=== PATIENT | female | born 1990 | race Caucasian/White ===

== ENCOUNTER 2022-12-04 12:01 | Emergency (ER) | payer OTHER, SELFPAY ==
[2022-12-04 12:25] VITALS: BP 130/95; PULSE 81; RESP 18; TEMP 36.8; O2SAT 99; BMI 32.2
--- NOTE | 2022-12-04 12:34 | EXP.UTC ---
Discharge Plan Disposition Patient Disposition: Home, Self-Care Condition: Good Referrals Follow up/Referrals: Provider,Referral, MD [Primary Care Provider] - See instructions Activity Restrictions/Add. Instructions Additional Instructions/Restrictions: Your work-up did not show any evidence of emergent causes of chest pain please follow-up with your primary care provider. You may benefit from an ultrasound of your area of breast tenderness. Please return to the emergency department if you develop any new or worsening symptoms or become concerned for your health. Clinical Impressions Clinical Impression: Chest pain Discharge ED Provider: Torres Petersen [facility] General Chief complaint: Chest Pain Stated complaint: chest discomfort, possible anxiety Time Seen by Provider: 12/04/22 12:34 History of Present Illness Provider Complaint: Patient states that for the last 4 days she has been having pressure like feeling in her chest like something is sitting on her chest and felt like she was breathing through a straw and getting winded easily when she is up moving around States that also has sore area on the right side of her chest in the side of her right breast and cannot wear a bra because it makes it uncomfortable States that she does have a hx of anxiety so she thought that may be causing her chest discomfort so she waited before coming in but when it didnt get better she came in Related Data Allergies Allergy/AdvReac Type Severity Reaction Status Date / Time No Known Allergies Allergy Verified 12/04/22 12:48 [facility] Disclaimer: The information contained in this section may have been updated after the patient was seen, as this information can be updated by other users. Social History Smoking Status: Never smoker alcohol intake: never current occupational status: other Travel in the last 8 weeks: None ROS Obtained: Yes All systems reviewed & no additional complaints except as documented and Yes Systems reviewed as appropriate & no additional complaints except as documented Constitutional Constitutional: Reports system reviewed and no additional complaints, except as documented, Reports as per HPI, Denies body ache, Denies chills, Denies fever(s) and Denies headache(s) ENT Ears, Nose, Mouth, and Throat: Reports system reviewed and no additional complaints, except as documented, Reports as per HPI and Denies headache(s) Cardiovascular Cardiovascular: Reports system reviewed and no additional complaints, except as documented, Reports as per HPI, Reports dyspnea and Reports other (reports chest tightness and discomfort x 4 days no improvement) Respiratory Respiratory: Reports system reviewed and no additional complaints, except as documented, Reports as per HPI, Reports shortness of breath (winded feels like she is breathing through straw when up moving around) and Reports dyspnea Gastrointestinal Gastrointestingal: Reports system reviewed and no additional complaints, except as documented and as per HPI Neurologic Neurologic: Denies headache(s) Physical Exam General General appearance: alert and in no apparent distress Expanded Chest Exam Female Torso: 1. reports tenderness with palpation no redness no swelling noted Respiratory Respiratory exam: Present normal lung sounds bilaterally; Absent respiratory distress Cardiovascular Cardiovascular exam: Present regular rate, normal rhythm and normal heart sounds Neurological Exam Neurological exam: Present alert, oriented X3 and normal gait Medical Decision Making Nadeem Inquiry Pt receiving controlled substance: No Nadeem was queried for this patient: No Lab Data 12/04/22 12:55 12/04/22 12:55 Medical Decision Narrative: Patient states that she has a hx of anxiety and states for last 4 days she has been having pressure and tightness in her chest thought it may be her anxiety so she waited to come in but it hasnt improved and burgos
--- NOTE | 2022-12-04 12:48 | PC.NURSE ---
PATIENT SENT TO ER PER Jonny HEMPHILL APRN FOR FURTHER EVALUATION. PATIENT AMBULATED TO ER WITH [facility] STAFF ASSIST AT THIS TIME
[2022-12-04 12:52] VITALS: BP 144/89; PULSE 77; RESP 18; TEMP 36.7; O2SAT 98; BMI 32.1
--- NOTE | 2022-12-04 12:56 | ECG_ITS ---
APPROVED REPORT Exam: Resting ECG HR:67 bpm ECG Measurements Heart Rate 67 AXES GA 164 P 56 QRSd 95 QRS 34 QT 381 T 60 QTc 397 Conclusion SINUS RHYTHM NORMAL ECG UNCONFIRMED REPORT Electronically signed by : Harish Ly MD 12/06/2022 21:32:01
[2022-12-04 12:58] LABS: Microscopic, Urine URINE MICROSCOPIC (MICROSCOPIC)
--- NOTE | 2022-12-04 13:01 | XR_ITS ---
FINAL REPORT CLINICAL HISTORY: cp/soa FINDINGS: The heart size is normal. The mediastinum is within normal limits. There is no acute cardiopulmonary process. There is no pleural effusion. There is no pneumothorax. The bony thorax is intact. IMPRESSION: No acute cardiopulmonary process. Reviewed, Interpreted and Dictated by Naveen Ruiz III, MD Transcribed by Santino Emmanuel Authenticated and [facility]
[2022-12-04 13:02] LABS: Appearance,Urine CLEAR (Clear); Bilirubin,Urine Negative (Negative); Blood, Urine Negative (Negative); Color,Urine YELLOW (Yellow); Glucose,Urine (UA) Negative (Negative); Ketones,Urine Negative (Negative); Leukocyte Esterase,Urine Negative (Negative); Nitrate,Urine Negative (Negative); Protein,Urine Negative (Negative); Urobilinogen,Urine 0.2 EU/dl (0.2)
[2022-12-04 13:03] LABS: Urine Pregnancy, HCG Qual. Negative (Negative)
[2022-12-04 13:15] LABS: Squamous Epithelial Cell,Urine Occasional #/hpf (0-5)
[2022-12-04 13:18] LABS: Basophils # 0.1 K/mm3 (0-0.2); Eosinophils # 0.2 K/mm3 (0.0-0.4); Eosinophils % 2.1 % (0.1-12.0); Hematocrit 38.8 % (37.0-47.0); Hemoglobin 13.2 g/dL (12.2-16.2); Lymphocytes # 1.8 K/mm3 (0.7-4.5); Lymphocytes % 24.8 % (10-50); Mean Corpuscular HGB Conc 33.9 g/dL (31.8-35.4); Mean Corpuscular Hemoglobin 30.4 pg (27.0-31.2); Mean Corpuscular Volume 89.7 fl (81-99); Mean Platelet Volume 9.7 fl (7.4-10.4); Monocytes # 0.3 K/mm3 (0.1-1.0); Monocytes % 4.8 % (1.7-9.3); Neutrophils # 4.8 K/mm3 (1.8-7.8); Neutrophils % 67.2 % (37.0-80.0); Platelet Count 259 K/mm3 (142-424); Red Blood Count 4.33 M/mm3 (4.20-5.40); Red Cell Distribution Width 14.6 % (11.5-17.5); White Blood Count 7.1 K/mm3 (4.8-10.8)
[2022-12-04 13:22] LABS: Chloride 106 mmol/L (98-107); Sodium 141 mmol/L (136-145)
[2022-12-04 13:23] LABS: Potassium 3.9 mmoL/L (3.5-5.1)
[2022-12-04 13:25] LABS: Alanine Aminotransferase 25 U/L (12-78); Anion Gap 11.9 mEq/L (5-15); Aspartate Amino Transferase 38 U/L (14-36); Blood Urea Nitrogen 9 mg/dl (7-17); Carbon Dioxide 27 mmol/L (22.0-30.0); Creatinine Clearance Estimated 206 mL/min (50-200); Estimated Glomerular Filt Rate 117 ml/min (>60); GFR (African American) 141 ML/MIN (>60)
[2022-12-04 13:26] LABS: Albumin/Globulin Ratio 1.6 (1.1-1.8); Alkaline Phosphatase 70 U/L (38-126); Bilirubin,Total 0.3 mg/dl (0.2-1.3); Calcium 9.1 mg/dl (8.4-10.2); Globulin 3.2 g/dL (1.3-3.2); Glucose 101 mg/dl (74-100); Total Protein,Serum 8.2 g/dl (6.3-8.2)
[2022-12-04 13:27] LABS: D-Dimer 0.78 ug/mL (0.0-0.5)
--- NOTE | 2022-12-04 13:31 | CT_ITS ---
FINAL REPORT CLINICAL HISTORY: cp, sob, positive dimer FINDINGS: Thin section axial CT images of the chest were obtained with contrast. 3D reformatted images were also obtained. This study was performed with techniques to keep radiation doses as low as reasonably achievable (ALARA). Individualized dose reduction techniques using automated exposure control or adjustment of mA and/or kV according to the patient's size were employed. There is no evidence of pulmonary embolism. There is no evidence of thoracic aortic aneurysm or dissection. There is no evidence of mediastinal or hilar mass or adenopathy. There is no evidence of pulmonary mass or nodule. No localized inflammatory process is seen within the lungs. Limited images of the upper abdomen reveal several small stones in the upper pole of the right kidney. IMPRESSION: No evidence of pulmonary embolism. Right renal stones. Reviewed, Interpreted and Dictated by Naveen Ruiz III, MD Transcribed by Fátima Fowler Authenticated and [facility]
[2022-12-04 13:39] LABS: Troponin I < 0.01 ng/ml (0.00-0.034)
[2022-12-04 14:01] LABS: Thyroid Stimulating Hormone 2.16 uIU/mL (0.465-4.68)
[2022-12-04 14:45] VITALS: BP 119/83; PULSE 71; O2SAT 96
--- NOTE | 2022-12-04 14:47 | PC.NURSE ---
Rounded on patient; pt ambulatory to restroom without complications. No other needs at this time
[2022-12-04 15:00] VITALS: BP 126/85; PULSE 66; O2SAT 98
[2022-12-04 15:35] VITALS: BP 126/86; PULSE 68; RESP 18; TEMP 36.7; O2SAT 99
--- NOTE | 2022-12-13 05:49 | HMH.EDGENADL ---
Discharge Plan Disposition Patient Disposition: Home, Self-Care Condition: Good Prescriptions Prescriptions: No Action hydroxychloroquine 200 mg tablet PO sertraline 100 mg tablet 100 mg PO DAILY Patient Comments: TAKE 1 TABLET BY MOUTH ONCE DAILY trazodone 50 mg tablet 50 mg PO HS lorazepam 1 mg tablet 1 mg PO DAILY PRN (Reason: panic attack(s)) Qty: 7 0RF Referrals Follow up/Referrals: Provider,Referral, MD [Primary Care Provider] - See instructions Activity Restrictions/Add. Instructions Additional Instructions/Restrictions: Your work-up did not show any evidence of emergent causes of chest pain please follow-up with your primary care provider. You may benefit from an ultrasound of your area of breast tenderness. Please return to the emergency department if you develop any new or worsening symptoms or become concerned for your health. Clinical Impressions Clinical Impression: Chest pain Discharge ED Provider: Torres Petersen General Adult HPI General Chief complaint: Chest Pain Stated complaint: chest discomfort, possible anxiety Time Seen by Provider: 12/04/22 12:34 Mode of Arrival: Ambulatory Source of Information: Patient Limitations: No Limitations Description of Symptoms (Recalled from ER Triage Doc. by RN): PATIENT C/O PAIN UNDER RIGHT BREAST AREA, CHEST PRESSURE, AND EASILY RUNNING OUT OF BREATH SINCE YESTERDAY History of Present Illness HPI narrative: 32-year-old female, history of anxiety, presents with 4 days of chest pain and discomfort.She reports it is central in nature, also reports an area of tenderness in her right medial breast. Reports of difficulty breathing. Denies any fever chills or recent illness. Related Data Home Medications Medication Instructions Recorded Confirmed hydroxychloroquine 200 mg tablet mg PO 12/12/22 12/12/22 sertraline 100 mg tablet 100 mg PO DAILY 12/12/22 12/12/22 trazodone 50 mg tablet 50 mg PO HS 12/12/22 12/12/22 Previous Rx's Medication Instructions Recorded lorazepam 1 mg tablet 1 mg PO DAILY PRN panic attack(s) 12/12/22 #7 tabs Allergies Allergy/AdvReac Type Severity Reaction Status Date / Time No Known Allergies Allergy Verified 12/12/22 10:[address] [facility] Disclaimer: The information contained in this section may have been updated after the patient was seen, as this information can be updated by other users. Medical History (Updated 12/12/22 @ 11:04 by Ishan David DO) Anxiety Depression Rheumatoid arteritis Family History (Updated 12/12/22 @ 10:32 by Merly Chacon CMA) Other Asthma Coronary artery disease Diabetes Hyperlipidemia Hypertension Social History (Updated 12/12/22 @ 10:32 by Merly Chacon CMA) Smoking Status: Never smoker alcohol intake: never substance use type: denies use current occupational status: employed Travel in the last 8 weeks: None ROS Obtained: Yes All systems reviewed & no additional complaints except as documented Physical Exam General General appearance: alert and in no apparent distress Head Head exam: atraumatic and normocephalic Eye Eye exam: Present normal appearance, PERRL and EOMI ENT ENT exam: Present normal oropharynx and normal external ear exam Neck Neck exam: Present normal inspection and full ROM Chest Chest inspection: Present normal inspection, symmetric chest wall rise and tenderness (Right medial breast tenderness without overlying skin changes) Respiratory Respiratory exam: Present normal lung sounds bilaterally; Absent respiratory distress Cardiovascular Cardiovascular exam: Present regular rate and normal rhythm Abdominal Exam Abdominal exam: Present soft; Absent distention, tenderness or guarding Extremities Exam Extremities exam: Present normal inspection; Absent edema or joint swelling Back Exam Back exam: Present normal inspection; Absent tenderness Neurological Exam Neurological exam: Present alert an
== END 2022-12-04 15:35 | disposition home or self-care (01) ==
LOC: UTC 12:14 → ER 12:48
PROVIDERS: Emergency Provider Emergency Medicine
DX: R07.9 Chest pain, unspecified (principal)
CPT/HCPCS: 71045; 71275; 80053; 81001; 81025; 84443; 84484; 85025; 85378; 93005; 99285; Q9967

== ENCOUNTER 2022-12-25 16:35 | Emergency (ER) | payer OTHER, SELFPAY ==
[2022-12-25 16:50] VITALS: BP 135/83; PULSE 72; RESP 18; TEMP 36.9; O2SAT 97; BMI 30.8
[2022-12-25 16:57] LABS: UTC Strep Screen (Rapid) Negative (Negative)
--- NOTE | 2022-12-25 17:01 | EXP.UTC ---
Discharge Plan Disposition Patient Disposition: Home, Self-Care Condition: Good Prescriptions Prescriptions: New tiqobbjuhffghtg-lvjsfmjip-DL [Bromfed DM] 2-30-10 mg/5 mL Syrup 5 ml PO Q6H PRN (Reason: Cough) Qty: 240 0RF ondansetron 4 mg Tablet,Disintegrating 4 mg PO Q8H PRN (Reason: Nausea) Qty: 12 0RF No Action hydroxychloroquine 200 mg tablet 200 mg PO BID sertraline 100 mg tablet 100 mg PO DAILY Patient Comments: TAKE 1 TABLET BY MOUTH ONCE DAILY trazodone 50 mg tablet 50 mg PO HS lorazepam 1 mg tablet 1 mg PO DAILY PRN (Reason: panic attack(s)) Qty: 7 0RF Referrals Follow up/Referrals: Ishan David DO [Primary Care Provider] - See instructions Activity Restrictions/Add. Instructions Additional Instructions/Restrictions: Drink plenty of fluids. Take tylenol or ibuprofen for pain or fever. Take the medications as directed. Follow up with your regular doctor. GO TO THE ER FOR ANY WORSENING SYMPTOMS Clinical Impressions Clinical Impression: Acute viral syndrome, Viral pharyngitis Stand Alone Forms Stand Alone Forms: Work/School Release Instructions Patient Instructions: DI for Viral Syndrome Discharge ED Provider: Rogelio Rios [facility] General Stated complaint: sore throat, runny nose, congestion Mode of Arrival: Ambulatory Source of Information: Patient Limitations: No Limitations Time Seen by Provider: 12/25/22 17:00 Description of Symptoms (Recalled from Triage Doc. by RN): sore throat, runny nose, and congestion HEENT Symptoms (Recalled from RN notes): Yes Resp Symptoms (Recalled from RN notes): No Skin Symptoms (Recalled from RN notes): No MS Symptoms (Recalled from RN notes): No Functional Status (Recalled from RN notes): n/a History of Present Illness Provider Complaint: She c/o sore throat, runny nose, and congestion for the past 2 days. Related Data Home Medications Medication Instructions Recorded Confirmed hydroxychloroquine 200 mg tablet 200 mg PO BID 12/12/22 12/25/22 sertraline 100 mg tablet 100 mg PO DAILY 12/12/22 12/25/22 trazodone 50 mg tablet 50 mg PO HS 12/12/22 12/25/22 Previous Rx's Medication Instructions Recorded lorazepam 1 mg tablet 1 mg PO DAILY PRN panic attack(s) 12/12/22 #7 tabs ylkfaoozrkomjvu-jrrxbtjvkkiufco-ZQ 5 ml PO Q6H PRN Cough #240 mL 12/25/22 2 mg-30 mg-10 mg/5 mL oral syrup (Bromfed DM) ondansetron 4 mg disintegrating 4 mg PO Q8H PRN Nausea #12 tabs 12/25/22 tablet Allergies Allergy/AdvReac Type Severity Reaction Status Date / Time No Known Allergies Allergy Verified 12/25/22 16:53 Worker's Comp Is this a Worker's Comp case?: No [facility] Disclaimer: The information contained in this section may have been updated after the patient was seen, as this information can be updated by other users. Medical History (Updated 12/25/22 @ 17:16 by Rogelio Rios APRN) Anxiety Depression Rheumatoid arteritis Family History Other Asthma Coronary artery disease Diabetes Hyperlipidemia Hypertension Social History Smoking Status: Never smoker alcohol intake: never substance use type: denies use current occupational status: employed Travel in the last 8 weeks: None ROS Obtained: Yes All systems reviewed & no additional complaints except as documented Constitutional Constitutional: Reports chills and Reports fever(s) Eyes Eyes: Denies eye discharge ENT Ears, Nose, Mouth, and Throat: Reports as per HPI Cardiovascular Cardiovascular: Denies chest pain Respiratory Respiratory: Denies chest congestion and Reports cough Gastrointestinal Gastrointestingal: Reports nausea; Denies abdominal pain, constipation, cramping, diarrhea or vomiting Musculoskeletal Musculoskeletal: Denies arthralgias Integumentary/Breasts Skin/Breast: Denies rash Neurologic Neur
[2022-12-25 17:53] VITALS: BP 135/83; PULSE 72; RESP 18; TEMP 36.9; O2SAT 97
== END 2022-12-25 17:53 | disposition home or self-care (01) ==
PROVIDERS: Emergency Provider Nurse Practitioner Family; PCP Internal Medicine
DX: J02.8 Acute pharyngitis due to other specified organisms (principal); R09.81 Nasal congestion; B34.9 Viral infection, unspecified; M06.9 Rheumatoid arthritis, unspecified
CPT/HCPCS: 87880; 99204; 99212; G0463

== ENCOUNTER 2023-02-17 10:18 | Emergency (ER) | payer OTHER, SELFPAY ==
[2023-02-17 10:55] VITALS: BP 144/91; PULSE 81; RESP 19; TEMP 37.1; O2SAT 98; BMI 28.8
--- NOTE | 2023-02-17 11:09 | EXP.UTC ---
Discharge Plan Disposition Patient Disposition: Home, Self-Care Condition: Good Prescriptions Prescriptions: New amoxicillin 875 mg tablet 875 mg PO Q12H Qty: 20 0RF No Action hydroxychloroquine 200 mg tablet 200 mg PO BID sertraline 100 mg tablet 100 mg PO DAILY Patient Comments: TAKE 1 TABLET BY MOUTH ONCE DAILY Referrals Follow up/Referrals: Ishan David DO [Primary Care Provider] - See instructions Activity Restrictions/Add. Instructions Additional Instructions/Restrictions: *Monitor Temp, Over the counter Motrin or Tylenol as directed/as needed Tylenol every 4 hours and Motrin every 6 hours (as long as your family doctor has told you that you can take it) for fever or pain. and straight to ER if unable to lower temp less than 101.0 after medication given *Warm salt water gargles may help to soothe the throat *Throat Lozenges? *Warm fluids like tea with honey may help to soothe the throat? *Sleep elevated *Humidifier/Vaporizer *If you did not take Penicillin shot or was unable to, start taking antibiotic immediately and make sure that you take it for the FULL length of time although you should start to feel better in 24-48 hours *change toothbrush and toothpaste 24-48 hours after starting to take antibiotics so you do not reinfect yourself Monitor Temp. Tylenol and/or Ibuprofen as needed. ER if fever is no less than 101 despite alternating Tylenol and Ibuprofen * Encourage fluids, water, Gatorade, powerade, pedialyte if /toddler/or child *Cold fluids, popsicles and ice cream may feel good on his throat Follow up IMMEDIATELY for new or worsening symptoms or no Noticeable improvement over the next 48-72 hours. 911 for difficulty breathing or swallowing Clinical Impressions Clinical Impression: Strep throat Stand Alone Forms Stand Alone Forms: Work/School Release Instructions Patient Instructions: DI for Strep Throat Discharge ED Provider: Karen Weaver [facility] General Stated complaint: sore throat, fever Mode of Arrival: Ambulatory Source of Information: Patient Limitations: No Limitations Time Seen by Provider: 02/17/23 11:09 Description of Symptoms (Recalled from Triage Doc. by RN): PATIENT C/O FEVER, SORE THROAT AND BODY ACHES X 2 DAYS HEENT Symptoms (Recalled from RN notes): Yes Resp Symptoms (Recalled from RN notes): No Skin Symptoms (Recalled from RN notes): No MS Symptoms (Recalled from RN notes): No Functional Status (Recalled from RN notes): WNL History of Present Illness Provider Complaint: Patient states that for the last couple of days she has been having sore throat, body aches, headache and over all not feeling well so today when she was still having symptoms she came in to get checked Related Data Home Medications Medication Instructions Recorded Confirmed hydroxychloroquine 200 mg tablet 200 mg PO BID 12/12/22 02/17/23 sertraline 100 mg tablet 100 mg PO DAILY 12/12/22 02/17/23 Previous Rx's Medication Instructions Recorded amoxicillin 875 mg tablet 875 mg PO Q12H #20 tabs 02/17/23 Allergies Allergy/AdvReac Type Severity Reaction Status Date / Time No Known Allergies Allergy Verified 12/25/22 16:53 Worker's Comp Is this a Worker's Comp case?: No [facility] Disclaimer: The information contained in this section may have been updated after the patient was seen, as this information can be updated by other users. Medical History (Updated 02/17/23 @ 11:11 by Karen Weaver APRN) Anxiety Depression Rheumatoid arteritis Surgical History (Updated 02/17/23 @ 11:05 by Bella Zarco RN) History of section Family History Other Asthma Coronary artery disease Diabetes Hyperlipidemia Hypertension Social History Smoking Status: Never smoker alcohol intake: never substance use type: denies use current occupational status: employed Travel in the last 8 weeks: None ROS Obtained: Yes All systems reviewed & no additional complaints except as documented and Yes Systems reviewed as appropriate & no additional complaints except as documented Constitutional Constitutional: Reports system reviewed and no additional complaints, except as documented, Reports as per HPI, Reports body ache and Reports headache(s) ENT Ears, Nose, Mouth, and Throat: Reports system reviewed and no additional complaints, except as documented, Reports as per HPI, Reports headache(s) and Reports sore throat Cardiovascular Cardiovascular: Reports system reviewed and no additional complaints, except as documented and Reports as per HPI Respiratory Respiratory: Reports system reviewed and no additional complaints, except as documented and Reports as per HPI Neurologic Neurologic: Reports headache(s) Physical Exam General General appearance: alert and in no apparent distress ENT ENT exam: Present mucous membranes moist Expanded ENT Exam Throat exam: Present tonsillar erythema and tonsillar exudate Respiratory Respiratory exam: Present normal lung sounds bilaterally; Absent respiratory distress or wheezes Cardiovascular Cardiovascular exam: Present regular rate, normal rhythm and normal heart sounds Neurological Exam Neurological exam: Present alert, oriented X3 and normal gait Medical Decision Making Nadeem Inquiry Pt receiving controlled substance: No Nadeem was queried for this patient: No Vital Signs: 02/17/23 10:55 Temperature 98.7 F Temperature Source Oral Pulse Rate [Left Brachial] 81 Respiratory Rate 19 Blood Pressure [Left Arm] 144/91 H Blood Pressure Mean [Left Arm] 108 Blood Pressure Source [Left Arm] Automatic Cuff Blood Pressure Position [Left Arm] Sitting 02 Sat by Pulse Oximetry 98 Oxygen Delivery Method Room Air Lab Data Lab results reviewed: Yes I reviewed the patient's lab results.
[2023-02-17 11:19] LABS: UTC Strep Screen (Rapid) Positive (Negative)
[2023-02-17 11:19] LABS: UTC Influenza A Antigen Negative (Negative); UTC Influenza B Antigen Negative (Negative)
[2023-02-17 11:20] VITALS: BP 144/91; PULSE 81; RESP 19; TEMP 37.1; O2SAT 98
== END 2023-02-17 11:22 | disposition home or self-care (01) ==
PROVIDERS: Emergency Provider Nurse Practitioner; PCP Internal Medicine
DX: J02.0 Streptococcal pharyngitis (principal); R07.0 Pain in throat; R50.9 Fever, unspecified; R51.9 Headache, unspecified; M79.18 Myalgia, other site
CPT/HCPCS: 87804; 87880; 99212; 99214; G0463

== ENCOUNTER 2023-05-21 08:56 | Emergency (ER) | payer OTHER, SELFPAY ==
[2023-05-21 09:00] VITALS: BP 135/81; PULSE 78; RESP 18; TEMP 36.8; O2SAT 100; BMI 29.8
--- NOTE | 2023-05-21 09:11 | ED_ITS ---
Discharge Plan Disposition Patient Disposition: Home, Self-Care Condition: Good Prescriptions Prescriptions: New xkmeutck-peudqiiwy-TU 3.5-10,000-1 mg/mL-unit/mL-% drops,suspension 4 drp otic (ear) TID 7 Days Qty: 10 0RF Rx Instructions: right ear as directed amoxicillin 875 mg tablet 875 mg PO Q12H Qty: 20 0RF No Action hydroxychloroquine 200 mg tablet 200 mg PO BID trazodone 50 mg tablet 50 mg PO HS Qty: 90 3RF sertraline 100 mg tablet 100 mg PO DAILY Qty: 90 0RF Referrals Follow up/Referrals: Ishan David DO [Primary Care Provider] - See instructions Activity Restrictions/Add. Instructions Additional Instructions/Restrictions: Use drops as directed Take oral antibiotics as directed Follow up with your Family Doctor if no improvement or any worsening of symptoms Straight to ER if any life threatening symptoms Clinical Impressions Clinical Impression: Otitis media, Otitis externa Instructions Patient Instructions: Middle Ear Infection, DI for Otitis Externa Discharge ED Provider: Karen Weaver [facility] [place] HPI General Stated complaint: Rt ear pain Mode of Arrival: Ambulatory Source of Information: Patient Limitations: No Limitations Time Seen by Provider: 05/21/23 09:11 Description of Symptoms (Recalled from Triage Doc. by RN): Pt's symptoms are right ear pain, and pain on right side of face. She woke up with it this morning. HEENT Symptoms (Recalled from RN notes): Yes Resp Symptoms (Recalled from RN notes): No Skin Symptoms (Recalled from RN notes): No MS Symptoms (Recalled from RN notes): No Functional Status (Recalled from RN notes): n/a History of Present Illness Provider Complaint: Patient states that she is having pain in her right ear States that she woke up this morning and her right ear was feeling sore and hurt when she would touch it Related Data Home Medications Medication Instructions Recorded Confirmed hydroxychloroquine 200 mg tablet 200 mg PO BID 12/12/22 05/21/23 Previous Rx's Medication Instructions Recorded trazodone 50 mg tablet 50 mg PO HS #90 tabs 04/29/23 sertraline 100 mg tablet 100 mg PO DAILY #90 tabs 05/20/23 amoxicillin 875 mg tablet 875 mg PO Q12H #20 tabs 05/21/23 mihgxkla-xdruvysiq-tlhhxrepj 3.5 4 drp otic (ear) TID 7 days #10 mL 05/21/23 mg-10,000 unit/mL-1 % ear drops,susp Allergies Allergy/AdvReac Type Severity Reaction Status Date / Time No Known Allergies Allergy Verified 05/21/23 09:07 Worker's Comp Is this a Worker's Comp case?: No PFSH [facility] Disclaimer: The information contained in this section may have been updated after the patient was seen, as this information can be updated by other users. Medical History (Updated 05/21/23 @ 09:24 by Karen Weaver APRN) Family history of colon cancer Depression Anxiety Rheumatoid arteritis Surgical History History of section Family History Grandfather Cancer Other Asthma Coronary artery disease Diabetes Hyperlipidemia Hypertension Social History Smoking Status: Never smoker alcohol intake: never substance use type: denies use current occupational status: employed Travel in the last 8 weeks: None ROS Obtained: Yes All systems reviewed & no additional complaints except as documented and Yes Systems reviewed as appropriate & no additional complaints except as documented Constitutional Constitutional: Reports system reviewed and no additional complaints, except as documented and Reports as per HPI ENT Ears, Nose, Mouth, and Throat: Reports system reviewed and no additional complaints, except as documented, Reports as per HPI and Reports otalgia Cardiovascular Cardiovascular: Reports system reviewed and no additional complaints, except as documented and Reports as per HPI Respiratory Respiratory: Reports system reviewed and no additional complaints, except as documented and Reports as per HPI Gastrointestinal Gastrointestingal: Reports system reviewed and no additional complaints, except as documented and as per HPI Physical Exam General General appearance: alert and in no apparent distress Expanded ENT Exam External ear exam: Present pain with movement and external tenderness TM/Canal exam: Right TM: erythema and loss of landmarks Respiratory Respiratory exam: Present normal lung sounds bilaterally; Absent respiratory distress or wheezes Cardiovascular Cardiovascular exam: Present regular rate, normal rhythm and normal heart sounds Neurological Exam Neurological exam: Present alert, oriented X3 and normal gait Medical Decision Making Nadeem Inquiry Pt receiving controlled substance: No Nadeem was queried for this patient: No Vital Signs: 05/21/23 09:00 Temperature 98.3 F Temperature Source Oral Pulse Rate [Right Radial] 78 Respiratory Rate 18 Blood Pressure [Right Arm] 135/81 Blood Pressure Mean [Right Arm] 99 Blood Pressure Source [Right Arm] Automatic Cuff Blood Pressure Position [Right Arm] Sitting 02 Sat by Pulse Oximetry 100 Oxygen Delivery Method Room Air
[2023-05-21 09:33] VITALS: BP 154/72; PULSE 70; RESP 18; TEMP 36.7; O2SAT 97
== END 2023-05-21 09:20 | disposition home or self-care (01) ==
PROVIDERS: Emergency Provider Nurse Practitioner; PCP Internal Medicine
DX: H66.91 Otitis media, unspecified, right ear (principal); H60.91 Unspecified otitis externa, right ear
CPT/HCPCS: 99212; 99214; G0463

== ENCOUNTER 2023-12-17 12:54 | Emergency (ER) | payer OTHER, SELFPAY ==
[2023-12-17 13:05] VITALS: BP 145/90; PULSE 80; RESP 18; TEMP 37.1; O2SAT 98; BMI 30.5
[2023-12-17 13:14] LABS: Apearance,Urine Clear (Clear); Bilirubin,Urine Negative (Negative); Blood, Urine Negative (Negative); Color,Urine Yellow (Yellow); Glucose,Urine (UA) 100 (Negative); Ketones,Urine Negative (Negative); Protein,Urine Negative (Negative); Specific Gravity, Urine 1.015 (1.005-1.030); UTC Leukocyte Esterase,Urine Trace (Negative); UTC Nitrate,Urine Positive (Negative); Urobilinogen,Urine 0.2 EU/dl (0.2)
--- NOTE | 2023-12-17 13:27 | EXP.UTC ---
Discharge Plan Disposition Patient Disposition: Home, Self-Care Condition: Good Prescriptions Prescriptions: New nitrofurantoin monohyd/m-cryst [Macrobid] 100 mg capsule 100 mg PO Q12H 7 Days Qty: 14 0RF Rx Instructions: must administer with a meal/food phenazopyridine [Pyridium] 200 mg tablet 200 mg PO Q8H 2 Days Qty: 6 0RF No Action trazodone 50 mg tablet 50 mg PO HS Qty: 90 3RF Referrals Follow up/Referrals: Ishan David DO [Primary Care Provider] - See instructions Activity Restrictions/Add. Instructions Additional Instructions/Restrictions: *Increase fluids. Water not Soda or Tea *Start antibiotic immediately and be sure to take as ordered for the FULL length of time although you should start to see improvement over the next 48 hours *Pyridium as needed Remember this medication will turn your urine . This is normal but it will stain what ever it gets on *You should not use Pyridium for more than 48 hours. If so , follow up with your primary physician to review urine culture and ensure that antibiotic is adequate for infection *Be SURE to follow up anytime for new or worsening symptoms with your family doctor. AND in 48 hours for urine culture results with your family doctor, if you do not have a doctor then you may call back to the [facility] for urine culture results and further treatment. We do recommend that you choose and establish care with a Primary Care Physician. ?AND follow up with them ?in 10-14 days to repeat UA to ensure infection is resolved and blood no longer present *Be sure to let your PCP know that we sent urine cultures from the [facility] so they can follow up to ensure that you area the on the correct antibiotic Call your doctor office and make appointment for 48 hours (2 days from today) ?to follow up and get the results of your urine culture and further treatment Clinical Impressions Clinical Impression: UTI (urinary tract infection) Instructions Patient Instructions: Nitrofurantoin, Phenazopyridine, DI for Urinary Tract Infection (UTI) Print Language Print Language: Icelandic Discharge ED Provider: Karen Weaver [facility] [place] H[place] General Stated complaint: uti Mode of Arrival: Ambulatory Source of Information: Patient Limitations: No Limitations Time Seen by Provider: 12/17/23 13:28 Description of Symptoms (Recalled from Triage Doc. by RN): PATIENT C/O BURNING WITH URINATION AND FEELS LIKE SHE HAS TO URINATE ALL THE TIME SINCE LAST NIGHT HEENT Symptoms (Recalled from RN notes): No Resp Symptoms (Recalled from RN notes): No Skin Symptoms (Recalled from RN notes): No MS Symptoms (Recalled from RN notes): No Functional Status (Recalled from RN notes): WNL History of Present Illness Provider Complaint: Patient states that she feels like she has a UTI States that she has been having burning with urination and feeling of urgency and frequency so today when she was still having symptoms she came in to get checked Related Data Previous Rx's ?Medication ?Instructions ?Recorded trazodone 50 mg tablet 50 mg PO HS #90 tabs 04/29/23 nitrofurantoin 100 mg PO Q12H 7 days #14 caps 12/17/23 monohydrate/macrocrystals 100 mg capsule (Macrobid) phenazopyridine 200 mg tablet 200 mg PO Q8H pain 2 days #6 tabs 12/17/23 (Pyridium) Allergies Allergy/AdvReac Type Severity Reaction Status Date / Time No Known Allergies Allergy Verified 05/21/23 09:07 Worker's Comp Is this a Worker's Comp case?: No [facility] Disclaimer: The information contained in this section may have been updated after the patient was seen, as this information can be updated by other users. Medical History (Updated 12/17/23 @ 13:31 by Karen Weaver APRN) Family history of colon cancer Depression Anxiety Rheumatoid arteritis Surgical History History of section Family History Grandfather Cancer Other Asthma Coronary artery disease Diabetes Hyperlipidemia Hypertension Social History Smoking Status: Never smoker alcohol intake: never substance use type: denies use current occupational status: employed Travel in the last 8 weeks: None ROS Obtained: Yes All systems reviewed & no additional complaints except as documented and Yes Systems reviewed as appropriate & no additional complaints except as documented Constitutional Constitutional: Reports system reviewed and no additional complaints, except as documented, Reports as per HPI, Denies body ache, Denies chills and Denies fever(s) ENT Ears, Nose, Mouth, and Throat: Reports system reviewed and no additional complaints, except as documented and Reports as per HPI Cardiovascular Cardiovascular: Reports system reviewed and no additional complaints, except as documented and Reports as per HPI Respiratory Respiratory: Reports system reviewed and no additional complaints, except as documented and Reports as per HPI Gastrointestinal Gastrointestingal: Reports system reviewed and no additional complaints, except as documented and as per HPI Genitourinary Female Genitourinary: Reports system reviewed and no additional complaints, except as documented, Reports as per HPI, Reports dysuria, Reports urinary frequency and Reports urinary urgency Physical Exam General General appearance: alert and in no apparent distress ENT ENT exam: Present normal exam, normal oropharynx, mucous membranes moist and TM's normal bilaterally Respiratory Respiratory exam: Present normal lung sounds bilaterally; Absent respiratory distress or wheezes Cardiovascular Cardiovascular exam: Present regular rate, normal rhythm and normal heart sounds Abdominal Exam Abdominal exam: Present soft and normal bowel sounds; Absent distention or tenderness Neurological Exam Neurological exam: Present alert, oriented X3 and normal gait Medical Decision Making Medical Records Screening: Per USPSTF and CDC recommendations, given the prevalence of disease in our region, it is our hospital?s policy to screen for HIV and viral Hepatitis for all patients aged 18 and over and those with ongoing risk factors. Nadeem Inquiry Pt receiving controlled substance: No Nadeem was queried for this patient: No Vital Signs: 12/17/23 13:05 Temperature 98.7 F Temperature Source Oral Pulse Rate [Left Brachial] 80 Respiratory Rate 18 Blood Pressure [Left Arm] 145/90 H Blood Pressure Mean [Left Arm] 108 Blood Pressure Source [Left Arm] Automatic Cuff Blood Pressure Position [Left Arm] Sitting 02 Sat by Pulse Oximetry 98 Lab Data Lab results reviewed: Yes I reviewed the patient's lab results. Lab Results 12/17/23 13:04: Urine Color Yellow, Urine Appearance Clear, Urine pH 6.0, Ur Specific [place] 1.015, Urine Protein Negative, Urine Glucose (UA) 100, Urine Ketones Negative, Urine Blood Negative, Urine Nitrate Positive A, Urine Bilirubin Negative, Urine Urobilinogen 0.2, Ur Leukocyte Esterase Trace Orders (Tests/Meds): ORDERS Category Date Time Status Urine Culture Stat Micro 12/17/23 13:02 Received
[2023-12-17 13:30] VITALS: BP 145/90; PULSE 80; RESP 18; TEMP 37.1; O2SAT 98
--- NOTE | 2023-12-20 20:12 | PC.NURSE ---
REVIEWED PATIENT'S URINE CULTURE WITH Jonny HEMPHILL APRN, WHO SPOKE WITH PHARMACY. PHARMACY STATES MACROBID IS A TREATMENT FOR THE MICROORGANISM. WILL CALL PATIENT IN MORNING TO SEE IF SHE'S FEELING BETTER.
== END 2023-12-17 13:34 | disposition home or self-care (01) ==
PROVIDERS: Emergency Provider Nurse Practitioner; PCP Internal Medicine
DX: N39.0 Urinary tract infection, site not specified (principal)
CPT/HCPCS: 81003; 87086; 87088; 87186; 99213; G0381

== ENCOUNTER 2023-12-27 14:57 | Emergency (ER) | payer OTHER, SELFPAY ==
[2023-12-27 15:35] VITALS: BP 119/82; PULSE 64; RESP 19; TEMP 37.1; O2SAT 98; BMI 30.4
--- NOTE | 2023-12-27 15:57 | EXP.UTC ---
Discharge Plan Disposition Patient Disposition: Home, Self-Care Condition: Good Prescriptions Prescriptions: New amoxicillin 875 mg tablet 875 mg PO Q12H Qty: 20 0RF cpocqipcxzkutts-dzjrihlai-MS [Bromfed DM] 2-30-10 mg/5 mL Syrup 5 ml PO Q6H PRN (Reason: Cough) Qty: 240 0RF Referrals Follow up/Referrals: Ishan David DO [Primary Care Provider] - See instructions Activity Restrictions/Add. Instructions Additional Instructions/Restrictions: Drink plenty of fluids. Take tylenol or ibuprofen for pain or fever. Take the medications as directed. Follow up with your regular doctor. GO TO THE ER FOR ANY WORSENING SYMPTOMS Clinical Impressions Clinical Impression: Pharyngitis Instructions Patient Instructions: Sore Throat, DI for Pharyngitis/Tonsillopharyngitis -- Adult Print Language Print Language: Setswana Discharge ED Provider: Rogelio Rios [facility] [place] HPI General Stated complaint: sore throat, fever Mode of Arrival: Ambulatory Source of Information: Patient Limitations: No Limitations Time Seen by Provider: 12/27/23 15:57 Description of Symptoms (Recalled from Triage Doc. by RN): PATIENT C/O SORE THROAT WITH WHITE SPOTS AND LOW-GRADE FEVER SINCE YESTERDAY HEENT Symptoms (Recalled from RN notes): Yes Resp Symptoms (Recalled from RN notes): No Skin Symptoms (Recalled from RN notes): No MS Symptoms (Recalled from RN notes): No Functional Status (Recalled from RN notes): WNL Related Data Previous Rx's ?Medication ?Instructions ?Recorded amoxicillin 875 mg tablet 875 mg PO Q12H #20 tabs 12/27/23 uvtoxaotavhzuec-uikpmbezjmeztjo-IS 5 ml PO Q6H PRN Cough #240 mL 12/27/23 2 mg-30 mg-10 mg/5 mL oral syrup (Bromfed DM) Allergies Allergy/AdvReac Type Severity Reaction Status Date / Time No Known Allergies Allergy Verified 05/21/23 09:07 Worker's Comp Is this a Worker's Comp case?: No [facility] Disclaimer: The information contained in this section may have been updated after the patient was seen, as this information can be updated by other users. Medical History (Updated 12/27/23 @ 16:15 by Rogelio Rios APRN) Family history of colon cancer Depression Anxiety Rheumatoid arteritis Surgical History History of section Family History Grandfather Cancer Other Asthma Coronary artery disease Diabetes Hyperlipidemia Hypertension Social History Smoking Status: Never smoker alcohol intake: never substance use type: denies use current occupational status: employed Travel in the last 8 weeks: None ROS Obtained: Yes All systems reviewed & no additional complaints except as documented Constitutional Constitutional: Reports chills and Reports fever(s) Eyes Eyes: Denies eye discharge ENT Ears, Nose, Mouth, and Throat: Reports as per HPI Cardiovascular Cardiovascular: Denies chest pain Respiratory Respiratory: Denies chest congestion and Reports cough Gastrointestinal Gastrointestingal: Reports nausea; Denies abdominal pain, constipation, cramping, diarrhea or vomiting Musculoskeletal Musculoskeletal: Denies arthralgias Integumentary/Breasts Skin/Breast: Denies rash Neurologic Neurologic: Denies paresthesias Physical Exam General General appearance: alert and in no apparent distress Head Head exam: atraumatic, normocephalic and normal inspection Eye Eye exam: Present normal appearance, PERRL and EOMI ENT ENT exam: Present mucous membranes moist and normal external ear exam Expanded ENT Exam TM/Canal exam: Bilateral TM: erythema and bulging Nose exam: Absent sinus tenderness Mouth exam: Present normal external inspection; Absent drooling Teeth exam: Present normal inspection Throat exam: Present tonsillar erythema, tonsillomegaly and tonsillar exudate Neck Neck exam: Present normal inspection, full ROM and trachea midline; Absent tenderness, meningismus or lymphadenopathy Chest Chest inspection: Present normal inspection and symmetric chest wall rise; Absent tenderness Respiratory Respiratory exam: Present normal lung sounds bilaterally; Absent respiratory distress, wheezes, stridor or accessory muscle use Cardiovascular Cardiovascular exam: Present regular rate and normal rhythm; Absent systolic murmur or diastolic murmur Abdominal Exam Abdominal exam: Present soft and normal bowel sounds; Absent distention, tenderness, guarding, rebound or rigidity Extremities Exam Extremities exam: Present normal inspection and normal capillary refill; Absent calf tenderness Back Exam Back exam: Present normal inspection and full ROM; Absent tenderness, CVA tenderness (R) or CVA tenderness (L) Neurological Exam Neurological exam: Present alert, oriented X3 and CN II-XII intact Psychiatric Psychiatric exam: Present normal affect and normal mood Skin Skin exam: Present warm, dry, intact and normal color Medical Decision Making Medical Records Medical records reviewed: No I reviewed the patient's medical records. Screening: Per USPSTF and CDC recommendations, given the prevalence of disease in our region, it is our hospital?s policy to screen for HIV and viral Hepatitis for all patients aged 18 and over and those with ongoing risk factors. Nadeem Inquiry Pt receiving controlled substance: No Vital Signs: 12/27/23 15:35 Temperature 98.8 F Temperature Source Oral Pulse Rate [Left Brachial] 64 Respiratory Rate 19 Blood Pressure [Left Arm] 119/82 Blood Pressure Mean [Left Arm] 94 Blood Pressure Source [Left Arm] Automatic Cuff Blood Pressure Position [Left Arm] Sitting 02 Sat by Pulse Oximetry 98 Oxygen Delivery Method Room Air Lab Data Lab results reviewed: Yes I reviewed the patient's lab results.
[2023-12-27 15:59] LABS: UTC Strep Screen (Rapid) Negative (Negative)
[2023-12-27 16:15] VITALS: BP 119/82; PULSE 64; RESP 19; TEMP 37.1; O2SAT 98
== END 2023-12-27 16:17 | disposition home or self-care (01) ==
PROVIDERS: Emergency Provider Nurse Practitioner Family; PCP Internal Medicine
DX: J02.9 Acute pharyngitis, unspecified (principal)
CPT/HCPCS: 87880; 99213; G0381

== ENCOUNTER 2024-01-12 08:35 | Emergency (ER) | payer OTHER, SELFPAY ==
[2024-01-12 09:03] VITALS: BP 121/87; PULSE 68; RESP 18; TEMP 36.8; O2SAT 97; BMI 30.7
[2024-01-12 09:05] LABS: Apearance,Urine Clear (Clear); Color,Urine Orange (Yellow)
[2024-01-12 09:06] LABS: Bilirubin,Urine Negative (Negative); Blood, Urine 3+ (Negative); Glucose,Urine (UA) 250 (Negative); Ketones,Urine TRACE (Negative); Protein,Urine 1+ (Negative); UTC Leukocyte Esterase,Urine 3+ (Negative); UTC Nitrate,Urine Positive (Negative); Urobilinogen,Urine 4 EU/dl (0.2)
--- NOTE | 2024-01-12 09:06 | ED_ITS ---
Discharge Plan Disposition Patient Disposition: Home, Self-Care Condition: Good Prescriptions Prescriptions: New phenazopyridine [Pyridium] 200 mg tablet 200 mg PO Q8H 2 Days Qty: 6 0RF ondansetron 4 mg Tablet,Disintegrating 4 mg PO Q8H PRN (Reason: Nausea) Qty: 12 0RF nitrofurantoin monohyd/m-cryst [Macrobid] 100 mg Capsule 100 mg PO BID Qty: 10 0RF Rx Instructions: must administer with a meal/food Referrals Follow up/Referrals: Ishan David DO [Primary Care Provider] - See instructions Activity Restrictions/Add. Instructions Additional Instructions/Restrictions: Drink plenty of fluids. Take tylenol or ibuprofen for pain or fever. Take the medications as directed. Follow up with your regular doctor. GO TO THE ER FOR ANY WORSENING SYMPTOMS The pyridium will make your urine turn orange, this is an expected side effect. It will stain your clothes if it comes into contact with them. We will culture the urine. That will tell what bacteria is causing your infection and which antibiotics will treat it best.This test takes 3 days to complete. Clinical Impressions Clinical Impression: UTI (urinary tract infection) Qualifiers: Urinary tract infection type: site unspecified Hematuria presence: without hematuria Qualified Code(s): N39.0 - Urinary tract infection, site not specified Stand Alone Forms Stand Alone Forms: Work/School Release Instructions Patient Instructions: Urinary Tract Infection, DI for Urinary Tract Infection (UTI) Print Language Print Language: French Discharge ED Provider: Rogelio Rios [facility] General Stated complaint: Pain and frequent urination Mode of Arrival: Ambulatory Source of Information: Patient Time Seen by Provider: 01/12/24 09:06 Description of Symptoms (Recalled from Triage Doc. by RN): UTI S/S HEENT Symptoms (Recalled from RN notes): No Resp Symptoms (Recalled from RN notes): No Skin Symptoms (Recalled from RN notes): No MS Symptoms (Recalled from RN notes): No Functional Status (Recalled from RN notes): WNL Related Data Previous Rx's ?Medication ?Instructions ?Recorded nitrofurantoin 100 mg PO BID #10 caps 01/12/24 monohydrate/macrocrystals 100 mg capsule (Macrobid) ondansetron 4 mg disintegrating 4 mg PO Q8H PRN Nausea #12 tabs 01/12/24 tablet phenazopyridine 200 mg tablet 200 mg PO Q8H 2 days #6 tabs 01/12/24 (Pyridium) Allergies Allergy/AdvReac Type Severity Reaction Status Date / Time No Known Allergies Allergy Verified 05/21/23 09:07 Worker's Comp Is this a Worker's Comp case?: No [facility] Disclaimer: The information contained in this section may have been updated after the patient was seen, as this information can be updated by other users. Medical History (Updated 01/12/24 @ 09:28 by Rogelio Rios APRN) Family history of colon cancer Depression Anxiety Rheumatoid arteritis Surgical History History of section Family History Grandfather Cancer Other Asthma Coronary artery disease Diabetes Hyperlipidemia Hypertension Social History Smoking Status: Never smoker alcohol intake: never substance use type: denies use current occupational status: employed ROS Obtained: Yes All systems reviewed & no additional complaints except as documented Constitutional Constitutional: Reports system reviewed and no additional complaints, except as documented, Denies chills and Denies fever(s) Eyes Eyes: Denies eye discharge ENT Ears, Nose, Mouth, and Throat: Denies dysphagia, Denies sore throat and Denies throat swelling Cardiovascular Cardiovascular: Denies chest pain and Denies dyspnea Respiratory Respiratory: Denies chest congestion, Denies cough and Denies dyspnea Gastrointestinal Gastrointestingal: Denies abdominal pain, constipation, diarrhea, dysphagia, nausea or vomiting Genitourinary Female Genitourinary: Reports as per HPI, Reports dysuria, Reports urinary frequency, Denies urinary incontinence, Reports urinary hesitancy and Reports urinary urgency Musculoskeletal Musculoskeletal: Denies arthralgias and Reports back pain Integumentary/Breasts Skin/Breast: Denies rash Neurologic Neurologic: Denies paresthesias Allergic/Immunologic Allergic/Immunologic: Denies throat swelling Physical Exam General General appearance: alert and in no apparent distress Head Head exam: atraumatic and normocephalic Eye Eye exam: Present normal appearance, PERRL and EOMI ENT ENT exam: Present normal exam, mucous membranes moist, TM's normal bilaterally and normal external ear exam Neck Neck exam: Present normal inspection, full ROM and trachea midline; Absent tenderness, meningismus or lymphadenopathy Chest Chest inspection: Present normal inspection and symmetric chest wall rise; Absent tenderness Respiratory Respiratory exam: Present normal lung sounds bilaterally; Absent respiratory distress, wheezes or stridor Cardiovascular Cardiovascular exam: Present regular rate, normal rhythm and normal heart sounds Abdominal Exam Abdominal exam: Present soft and normal bowel sounds; Absent distention, tenderness, guarding, rebound, rigidity, incision, psoas sign, obturator sign, heel tap sign, Aldrich's sign, Rovsing's sign or tenderness at McBurney's Point Extremities Exam Extremities exam: Present normal inspection, full ROM and normal capillary refill; Absent tenderness, edema, joint swelling, calf tenderness or cyanosis Back Exam Back exam: Present normal inspection and full ROM; Absent tenderness, CVA tenderness (R) or CVA tenderness (L) Neurological Exam Neurological exam: Present alert, oriented X3 and normal gait Psychiatric Psychiatric exam: Present normal affect and normal mood Skin Skin exam: Present warm, dry, intact and normal color Lymphatic Lymphatic Findings: no adenopathy Medical Decision Making Medical Records Medical records reviewed: No I reviewed the patient's medical records. Screening: Per USPSTF and CDC recommendations, given the prevalence of disease in our region, it is our hospital?s policy to screen for HIV and viral Hepatitis for all patients aged 18 and over and those with ongoing risk factors. Nadeem Inquiry Pt receiving controlled substance: No Vital Signs: 01/12/24 09:03 Temperature 98.2 F Temperature Source Oral Pulse Rate [Left Radial] 68 Respiratory Rate 18 Blood Pressure [Left Arm] 121/87 Blood Pressure Mean [Left Arm] 98 02 Sat by Pulse Oximetry 97 Lab Data Lab results reviewed: Yes I reviewed the patient's lab results. Lab Results 01/12/24 09:04: Urine Color Teller, Urine Appearance Clear, Urine pH 5.0, Ur Specific [place] 1.010, Urine Protein 1+, Urine Glucose (UA) 250, Urine Ketones Trace, Urine Blood 3+, Urine Nitrate Positive A, Urine Bilirubin Negative, Urine Urobilinogen 4, Ur Leukocyte Esterase 3+ A Orders (Tests/Meds): ORDERS Category Date Time Status Urine Culture Stat Micro 01/12/24 09:04 Ordered
[2024-01-12 09:29] VITALS: BP 121/87; PULSE 68; RESP 18; TEMP 36.8
== END 2024-01-12 09:31 | disposition home or self-care (01) ==
PROVIDERS: Emergency Provider Nurse Practitioner Family; PCP Internal Medicine
DX: N39.0 Urinary tract infection, site not specified (principal); R30.9 Painful micturition, unspecified; R35.0 Frequency of micturition; M54.9 Dorsalgia, unspecified
CPT/HCPCS: 81003; 87086; 87088; 87186; 99212; G0381

== ENCOUNTER 2024-01-15 15:50 | Outpatient (CLI) | payer OTHER, SELFPAY ==
[2024-01-17 05:11] LABS: HBsAg Screen Negative (Negative); HCV Ab Non Reactive (Non Reactive); Hep A Ab, IGM Negative (Negative); Hep B Core Ab, IgM Negative (Negative)
== END 2024-01-15 23:59 | disposition home or self-care (01) ==
LOC: LAB.DROPOF 01-16 10:13
PROVIDERS: PCP Internal Medicine; Visit Provider Internal Medicine
DX: Z11.59 Encounter for screening for other viral diseases (principal)
CPT/HCPCS: 80074

== ENCOUNTER 2024-01-17 07:12 | Emergency (ER) | payer OTHER, SELFPAY ==
[2024-01-17] VITALS (11 sets, daily range): BP systolic 111–152; BP diastolic 76–109; PULSE 65–101; RESP 15–23; TEMP 36.6–36.9; O2SAT 96–98; BMI 30.8
--- NOTE | 2024-01-17 07:19 | ECG_ITS ---
APPROVED REPORT Exam: Resting ECG HR:87 bpm ECG Measurements Heart Rate 87 AXES NE 159 P 45 QRSd 94 QRS -2 QT 348 T 49 QTc 393 Conclusion SINUS RHYTHM NORMAL ECG UNCONFIRMED REPORT Electronically signed by : DRAKE DOLAN, 01/19/2024 04:35:09
--- NOTE | 2024-01-17 07:47 | PC.NURSE ---
pt ambulatory to bathroom to provide urine sample.
[2024-01-17] MEDS: METHYLPREDNISOLONE SOD SUCC 125MG VIAL 125 MG IV (07:56)
[2024-01-17] MEDS: diphenhydrAMINE 50MG/ML VIAL 50 MG IV (07:56)
[2024-01-17] MEDS: FAMOTIDINE 20MG/2ML VIAL 40 MG IV (07:56)
[2024-01-17 07:57] LABS: Microscopic, Urine URINE MICROSCOPIC (MICROSCOPIC)
[2024-01-17 08:03] LABS: Appearance,Urine CLEAR (Clear); Bilirubin,Urine Negative (Negative); Blood, Urine Negative (Negative); Color,Urine YELLOW (Yellow); Glucose,Urine (UA) Negative (Negative); Ketones,Urine Negative (Negative); Leukocyte Esterase,Urine Negative (Negative); Nitrate,Urine Negative (Negative); Protein,Urine Negative (Negative); Specific Gravity, Urine 1.025 (1.005-1.030); Urobilinogen,Urine 0.2 EU/dl (0.2)
--- NOTE | 2024-01-17 08:22 | HMH.EDGENADL ---
Discharge Plan Disposition Patient Disposition: Home, Self-Care Condition: Good Prescriptions Prescriptions: New epinephrine [EpiPen] 0.3 mg/0.3 mL auto-injector 0.3 mg IM Q10M PRN (Reason: anaphylaxis) Qty: 2 0RF Rx Instructions: for 2 doses cefpodoxime 200 mg tablet 200 mg PO BID 7 Days Qty: 14 0RF Rx Instructions: must administer with a meal/food No Action trazodone 50 mg tablet 50 mg PO HS PRN amoxicillin-pot clavulanate [Augmentin] 500-125 mg tablet 1 tab PO BID 14 Days Qty: 28 0RF Referrals Follow up/Referrals: Ishan Green DO [Primary Care Provider] - See instructions Activity Restrictions/Add. Instructions Additional Instructions/Restrictions: As discussed please follow-up with your primary care provider. I have prescribed an EpiPen, please use this should you have recurrence of symptoms with trouble breathing. Should your symptoms only return and be itchiness and rash try Benadryl. I have changed your antibiotic for your UTI given recent Augmentin starting last night with a rash this morning. Please do not take Augmentin until seen by your primary care provider and consider allergy testing to evaluate for source of today's reaction and rash Clinical Impressions Clinical Impression: Allergic reaction Print Language Print Language: Citizen Of [place] Discharge ED Provider: Mikey Moreno General Adult HPI General Chief complaint: Arrhythmia/Palpitations Stated complaint: hives, shaking Time Seen by Provider: 01/17/24 07:17 Mode of Arrival: Ambulatory Source of Information: Patient Limitations: No Limitations Description of Symptoms (Recalled from ER Triage Doc. by RN): pt presents to ED with c/o itching and palpitations that began approx 15 mins ago. pt reports taking a new abx last night, amox for uti. dr green swithced pt form nitrofuritonin to amox. History of Present Illness HPI narrative: 33yoF patient presents with a chief complaint of sudden onset hives on both legs and one arm, accompanied by a racing heart . Reports that the hives appeared while at work shortly prior to arrival and have slightly improved since their onset. The patient denies any breathing problems, chest pain, shortness of breath, nausea, vomiting, belly pain, diarrhea, or scratchiness in the throat. There is no known history of hives/allergy. The patient started a new antibiotic, amoxicillin with clavulanate (Augmentin), the night before the visit for a urinary tract infection (UTI). Nhi has tolerated amoxicillin in the past without any issues. The UTI was initially treated with Macrobid 2-3 weeks ago, but symptoms returned a few days ago. The patient reports experiencing burning during urination but denies any back pain or other symptoms. The patient denies using any new detergents or having any new exposures or foods. Nhi confirms taking the Augmentin the night before the visit and feeling fine in the morning before the sudden onset of symptoms. Additionally, the patient works at a daycare but denies any contact with children or substances that could have caused the hives. Please note that above description of symptoms, in this electronic medical record under categorization of recalled from ER triage doctor by RN are reflective of an initial nursing assessment, however, is not reflective of my full history and physical exam that was personally taken and clarified. Consequentially, this preceding description of symptoms, which may include the patient's categorized chief complaint in the EMR, do not reflect my personal clinical impression, and the ultimate description of history of present illness and patient stated complaints should be deferred to this section of the note. Unless stated otherwise or congruent with this section of the note, additional signs, symptoms, or incongruence should be interpreted as inaccurate with my clinical impression. Related Data Home Medications ?Medication ?Instructions ?Recorded ?Confirmed trazodone 50 mg tablet 50 mg PO HS PRN 01/15/24 01/15/24 Previous Rx's ?Medication ?Instructions ?Recorded amoxicillin 500 mg-potassium 1 tab PO BID 14 days #28 tabs 01/15/24 clavulanate 125 mg tablet (Augmentin) cefpodoxime 200 mg tablet 200 mg PO BID 7 days #14 tabs 01/17/24 epinephrine 0.3 mg/0.3 mL 0.3 mg (0.3 mL) IM Q10M PRN 01/17/24 injection, auto-injector (EpiPen) anaphylaxis #2 ea Allergies Allergy/AdvReac Type Severity Reaction Status Date / Time No Known Allergies Allergy Verified 01/15/24 15:23 [facility] Disclaimer: The information contained in this section may have been updated after the patient was seen, as this information can be updated by other users. Medical History Family history of colon cancer grandfather Depression Anxiety Rheumatoid arteritis Surgical History History of section Family History Grandfather Cancer colon Other Asthma Coronary artery disease Diabetes Hyperlipidemia Hypertension Social History Smoking Status: Never smoker alcohol intake: never substance use type: denies use current occupational status: employed Travel in the last 8 weeks: None ROS Obtained: Yes Systems reviewed as appropriate & no additional complaints except as documented Physical Exam General General appearance: alert and in no apparent distress Head Head exam: atraumatic and normocephalic Eye Eye exam: Present normal appearance and EOMI ENT ENT exam: Present normal exam Neck Neck exam: Present normal inspection Chest Chest inspection: Present normal inspection and symmetric chest wall rise Respiratory Respiratory exam: Present normal lung sounds bilaterally Cardiovascular Cardiovascular exam: Present regular rate, normal rhythm and normal heart sounds Abdominal Exam Abdominal exam: Present soft and normal bowel sounds; Absent distention or tenderness Extremities Exam Extremities exam: Present normal inspection and full ROM; Absent tenderness Back Exam Back exam: Present normal inspection Neurological Exam Neurological exam: Present alert and oriented X3 Psychiatric Psychiatric exam: Present normal affect and normal mood Skin Skin exam: Present warm, dry, intact, normal color and rash (Diffuse maculopapular rash noted on lower extremities at anterior shins and right distal forearm. No noted significant erythema or other abnormalities at time of evaluation) Medical Decision Making Medical Records Medical records reviewed: Yes I reviewed the patient's medical records. Screening: Per USPSTF and CDC recommendations, given the prevalence of disease in our region, it is our hospital?s policy to screen for HIV and viral Hepatitis for all patients aged 18 and over and those with ongoing risk factors. Nadeem Inquiry Pt receiving controlled substance: No Vital Signs: 01/17/24 07:14 01/17/24 07:49 01/17/24 08:00 Temperature 98.4 F Temperature Source Oral Pulse Rate 100 H 89 Pulse Rate [Left Radial] 101 H Respiratory Rate 17 21 Blood Pressure 127/100 H Blood Pressure [Right Arm] 152/109 H Blood Pressure Mean Blood Pressure Mean [Right Arm] 123 02 Sat by Pulse Oximetry 97 98 98 Oxygen Delivery Method Room Air 01/17/24 08:15 01/17/24 08:30 01/17/24 08:45 Temperature Temperature Source Pulse Rate 85 81 82 Pulse Rate [Left Radial] Respiratory Rate 21 19 15 Blood Pressure 118/80 Blood Pressure [Right Arm] Blood Pressure Mean Blood Pressure Mean [Right Arm] 02 Sat by Pulse Oximetry 98 98 96 Oxygen Delivery Method 01/17/24 09:00 01/17/24 09:30 01/17/24 10:00 Temperature Temperature Source Pulse Rate 87 84 87 Pulse Rate [Left Radial] Respiratory Rate 18 18 20 Blood Pressure 112/78 122/85 120/82 Blood Pressure [Right Arm] Blood Pressure Mean 91 Blood Pressure Mean [Right Arm] 02 Sat by Pulse Oximetry 96 98 96 Oxygen Delivery Method 01/17/24 10:30 Temperature Temperature Source Pulse Rate 82 Pulse Rate [Left Radial] Respiratory Rate 23 Blood Pressure 111/76 Blood Pressure [Right Arm] Blood Pressure Mean 85 Blood Pressure Mean [Right Arm] 02 Sat by Pulse Oximetry 96 Oxygen Delivery Method Lab Data Lab Results 01/17/24 07:41: Urine Color Yellow, Urine Appearance Clear, Urine pH 6.0, Ur Specific [place] 1.025, Urine Protein Negative, Urine Glucose (UA) Negative, Urine Ketones Negative, Urine Blood Negative, Urine Nitrate Negative, Urine Bilirubin Negative, Urine Urobilinogen 0.2, Ur Leukocyte Esterase Negative, Urine RBC None, Urine WBC None, Ur Squamous Epith Cells 3-5, Urine Bacteria None Orders (Tests/Meds): ED MEDICATIONS Generic Name Dose Route Start Last Admin Trade Name Freq PRN Reason Stop Dose Admin Sodium Chloride 10 ml 01/17/24 07:41 Sodium Chloride 0.9% 10ml Flush Syringe IV 02/16/24 07:40 NEEDED PRN Maintain IV Site Discontinued Medications Generic Name Dose Route Start Last Admin Trade Name Freq PRN Reason Stop Dose Admin Diphenhydramine HCl 50 mg 01/17/24 07:41 01/17/24 07:56 Diphenhydramine 50mg/Ml Vial IV 01/17/24 07:42 50 mg ONCE ONE Administration Famotidine 40 mg 01/17/24 07:41 01/17/24 07:56 Famotidine 20mg/2ml Vial IV 01/17/24 07:42 40 mg ONCE ONE Administration Methylprednisolone Sodium Succinate 125 mg 12/06/24 07:41 01/17/24 07:56 Methylprednisolone Sod Succ 125mg Vial IV 01/17/24 07:42 125 mg ONCE ONE Administration ORDERS Category Date Time Status HIV (1&2) Antibody Rapid Stat Lab 01/17/24 07:47 Received UA [Urinalysis and Microscopic] Stat Lab 01/17/24 07:41 Completed ECG Data Tracing #1: Normal sinus rhythm, normal axis, normal intervals, no noted ST elevation or otherwise noted ectopy Medical Decision Narrative: Patient with history and exam per above presenting for evaluation of rash Diagnoses considered include contact dermatitis, allergic reaction, anaphylaxis, medication complication, UTI ED workup and treatment included: As above. Patient given medications for allergic reaction. At this time patient does not have tachycardia, no chest pain, only symptoms are described as cutaneous system. Do not believe patient to be having anaphylactic reaction at this time. On reassessment patient remains hemodynamically stable, continues to have no other symptoms beyond prior skin symptoms however these have improved, no pruritus, no rash has resolved. Medically clear for discharge at this time. Prescribing EpiPen should patient have worsening allergic reaction following discharge. Given strict instructions to return to ED if symptoms worsen otherwise to follow-up with her primary care provider in the coming week. Patient agreeable with this plan. Discharged home in hemodynamically stable vitals My clinical impression at this time is most consistent with allergic reaction, On reassessment patient remains hemodynamically stable, continues to have no other symptoms beyond prior skin symptoms however these have improved, no pruritus, no rash has resolved. Medically clear for discharge at this time. Prescribing EpiPen should patient have worsening allergic reaction following discharge. Given strict instructions to return to ED if symptoms worsen otherwise to follow-up with her primary care provider in the coming week. Given patient having allergic reaction today and only recent change being taking Augmentin last night possible source of allergic reaction is Augmentin. Patient has been informed to stop taking this. Prescribing cefpodoxime. Patient agreeable with this plan. Discharged home in hemodynamically stable vitals I discussed my clinical impression with patient and answered all questions. At this time, the evidence for any other entities in the differential is insufficient to warrant any further testing or ED observation. This was explained to the patient. The patient was advised that persistent or worsening symptoms require further evaluation. Critical Care Critical Care Time Critical Care Time: No
--- NOTE | 2024-01-17 10:41 | PC.NURSE ---
Dr Moreno at bedside
[2024-01-17 11:36] LABS: HIV (1&2) Antibody Rapid NONREACTIVE (NONREACTIVE)
== END 2024-01-17 11:08 | disposition home or self-care (01) ==
PROVIDERS: Emergency Provider Student in an Organized Health Care Education/Training Program; PCP Internal Medicine
DX: T78.40XA Allergy, unspecified, initial encounter (principal); R21 Rash and other nonspecific skin eruption; R00.2 Palpitations; R30.9 Painful micturition, unspecified
CPT/HCPCS: 81001; 87389; 93005; 96374; 96375; 99283; J1200; J2919; S0028

== ENCOUNTER 2024-03-02 15:59 | Outpatient (CLI) | payer OTHER, SELFPAY ==
--- NOTE | 2024-03-02 16:01 | XR_ITS ---
FINAL REPORT TECHNIQUE: Chest PA & Lateral CLINICAL HISTORY: r/o pna COMPARISON: None FINDINGS: 2 views of the chest were performed. The heart size is normal. The mediastinum is within normal limits. There is no acute cardiopulmonary process. There are no pleural effusions. There is no pneumothorax. The bony thorax appears intact. IMPRESSION: No acute cardiopulmonary process. Reviewed, Interpreted and Dictated by Tin Carr MD Transcribed by Sushma Tidwell Authenticated and [facility]
[2024-03-02 16:45] LABS: Coronavirus 19, PCR Not Detected (NotDetected); Human Rhinovirus Not Detected (NotDetected); Influenza A, PCR Not Detected (NotDetected); Influenza B, PCR Not Detected (NotDetected); Respiratory Syncytial Virus Not Detected (NotDetected)
== END 2024-03-02 23:59 | disposition home or self-care (01) ==
LOC: RAD 16:00
PROVIDERS: PCP Nurse Practitioner Family; Visit Provider Nurse Practitioner Family
DX: J98.8 Other specified respiratory disorders (principal)
CPT/HCPCS: 71046; 87631

== ENCOUNTER 2024-03-03 10:57 | Outpatient (CLI) | payer OTHER, SELFPAY ==
[2024-03-03 10:31] LABS: Microscopic, Urine URINE MICROSCOPIC (MICROSCOPIC)
[2024-03-03 10:50] LABS: Basophils % 0.2 % (0.1-2.0); Eosinophils % 0.1 % (0.1-12.0); Hematocrit 36.9 % (37.0-47.0); Hemoglobin 12.2 g/dL (12.2-16.2); Lymphocytes # 1.8 K/mm3 (0.7-4.5); Lymphocytes % 19.9 % (10-50); Mean Corpuscular HGB Conc 33.1 g/dL (31.8-35.4); Mean Corpuscular Hemoglobin 28.5 pg (27.0-31.2); Mean Corpuscular Volume 86.2 fl (81-99); Monocytes # 0.6 K/mm3 (0.1-1.0); Monocytes % 6.4 % (1.7-9.3); Neutrophils # 6.6 K/mm3 (1.8-7.8); Neutrophils % 73.2 % (37.0-80.0); Platelet Count 327 K/mm3 (142-424); Red Blood Count 4.28 M/mm3 (4.20-5.40); Red Cell Distribution Width 14.5 % (11.5-17.5)
[2024-03-03 10:59] LABS: Albumin Level 4.9 g/dl (3.5-5.0); Chloride 107 mmol/L (98-107); Sodium 136 mmol/L (136-145)
[2024-03-03 11:01] LABS: Alanine Aminotransferase 31 U/L (12-78); Aspartate Amino Transferase 34 U/L (14-36); Blood Urea Nitrogen 11 mg/dl (7-17); Carbon Dioxide 21 mmol/L (22.0-30.0); Estimated Glomerular Filt Rate 116 ml/min (>60); GFR (African American) 140 ML/MIN (>60)
[2024-03-03 11:02] LABS: Albumin/Globulin Ratio 1.6 (1.1-1.8); Alkaline Phosphatase 79 U/L (38-126); Bilirubin,Total 0.6 mg/dl (0.2-1.3); Calcium 9.8 mg/dl (8.4-10.2); Chol/HDL Ratio 4.2 (1-3.5); Cholesterol 184 mg/dl (140-200); Glucose 87 mg/dl (74-100); HDL Cholesterol 44 mg/dl (40-60); Iron 69 ug/dL (37-170); Total Protein,Serum 7.9 g/dl (6.3-8.2); Triglycerides 125 mg/dl (30-150); VLDL Cholesterol 25 mg/dL (0-40)
[2024-03-03 11:11] LABS: Erythrocyte Sedimentation Rate 26 mm/hr (0-20)
[2024-03-03 11:14] LABS: Direct LDL Cholesterol 105.54 mg/dL (100-129)
[2024-03-03 11:17] LABS: Total Iron Binding Capacity 400 ug/dL (265-497)
[2024-03-03 11:22] LABS: 25-OH Vitamin D, Total 24.6 ng/mL (30-100)
[2024-03-03 11:40] LABS: Ferritin 12.8 ng/ml (6.24-137)
[2024-03-03 11:42] LABS: Blood, Urine TRACE-I (Negative); Color,Urine YELLOW (Yellow); Glucose,Urine (UA) Negative (Negative); Ketones,Urine TRACE (Negative); Leukocyte Esterase,Urine Negative (Negative); Nitrate,Urine Negative (Negative); Protein,Urine TRACE (Negative); Specific Gravity, Urine >= 1.030 (1.005-1.030); Urobilinogen,Urine 0.2 EU/dl (0.2)
[2024-03-03 12:06] LABS: Appearance,Urine Slightly Cloudy (Clear); Bilirubin,Urine Negative (Negative)
[2024-03-03 12:07] LABS: Bacteria,Urine Trace /lpf
[2024-03-03 12:08] LABS: Squamous Epithelial Cell,Urine 20-50 #/hpf (0-5)
[2024-03-03 13:02] LABS: Uric Acid 4.5 mg/dl (2.5-6.2)
[2024-03-03 13:08] LABS: C-Reactive Protein 12.1 mg/L (0-4)
[2024-03-03 13:20] LABS: Free T4 (Free Thyroxine) 1.11 ng/dl (0.78-2.19)
[2024-03-03 13:44] LABS: Hemoglobin A1C 4.7 % (4.0-6.0)
[2024-03-03 13:52] LABS: Vitamin B12 666 pg/mL (239-931)
[2024-03-04 06:10] LABS: RA Latex Turbid. 10.6 IU/mL (<14.0)
[2024-03-04 14:16] LABS: Antinuclear Antibodies (ANA) Negative (Negative)
[2024-03-07 06:13] LABS: Antinuclear Antibodies, IFA POSITIVE
== END 2024-03-03 23:59 | disposition home or self-care (01) ==
LOC: LAB.DROPOF 10:57
PROVIDERS: PCP Nurse Practitioner Family; Visit Provider Nurse Practitioner Family
DX: R53.83 Other fatigue (principal); Z13.220 Encounter for screening for lipoid disorders; Z13.1 Encounter for screening for diabetes mellitus; M05.79 Rheumatoid arthritis with rheumatoid factor of multiple sites without organ or systems involvement; E55.9 Vitamin D deficiency, unspecified
CPT/HCPCS: 80053; 80061; 81001; 82306; 82607; 82728; 83036; 83540; 83550; 84439; 84443; 84550; 85025; 85651; 86038; 86140; 86431; 87086

== ENCOUNTER 2024-05-29 07:55 | Outpatient (CLI) | payer OTHER, SELFPAY ==
--- NOTE | 2024-05-29 08:00 | CT_ITS ---
FINAL REPORT TECHNIQUE: Pre and post axial images of the abdomen and pelvis were obtained. Sagittal and coronal reconstructions were performed. This study was performed with techniques to keep radiation doses as low as reasonably achievable (ALARA). Individualized dose reduction techniques using automated exposure control or adjustment of mA and/or kV according to the patient's size were employed. CLINICAL HISTORY: LUQ pain LEFT SIDED ABD PAIN FINDINGS: The lung bases are clear. The liver is normal in size and attenuation. There are questionable densities in the gallbladder that may represent gallstones. The spleen is unremarkable. The adrenals are normal. The pancreas is unremarkable. There are multitude of right renal stones measuring up to 10 mm. These are best seen on image 49 of series 3. No left renal stones are visualized. The urinary bladder is unremarkable. The uterus is anteverted. There are small cysts or follicles in the bilateral ovaries. The GI tract demonstrates no acute abnormality. IMPRESSION: Multiple nonobstructing right renal stones. Questionable gallstones in the gallbladder. Consider gallbladder ultrasound if clinically indicated. Reviewed, Interpreted and Dictated by Tin Carr MD Transcribed by Zeinab Doll Authenticated and [facility]
[2024-05-29] MEDS: SODIUM CHLORIDE 0.9% 10ML SYR (RAD ONLY) 10 ML IV (08:11)
[2024-05-29] MEDS: IOPAMIDOL-370 (76%);100ML BOTTLE 75 ML IV (08:11)
== END 2024-05-29 23:59 | disposition home or self-care (01) ==
LOC: RAD 07:55
PROVIDERS: PCP Nurse Practitioner Family; Visit Provider Nurse Practitioner Family
DX: R10.12 Left upper quadrant pain (principal)
CPT/HCPCS: 74178; Q9967

== ENCOUNTER 2024-06-03 08:16 | Outpatient (CLI) | payer OTHER, SELFPAY ==
--- NOTE | 2024-06-03 08:30 | US_ITS ---
FINAL REPORT TECHNIQUE: Sonographic images of the right upper quadrant were obtained. CLINICAL HISTORY: abd pain, abnormal abd/pelvis CT COMPARISON: CT of the abdomen and pelvis dated 05/29/2024 FINDINGS: PANCREAS: Unremarkable. LIVER: Homogeneous. No focal hepatic lesion. No intrahepatic biliary ductal dilatation. GALLBLADDER: No gallstones. No gallbladder wall thickening or pericholecystic fluid. COMMON DUCT: 3 mm. Normal for age. RIGHT KIDNEY: The right kidney measures 12.8 cm. Multiple nonobstructing right renal stones are present, the largest measuring 11 mm in the lower pole. FREE FLUID: None. IMPRESSION: Multiple nonobstructing right renal stones as described. No evidence of gallstones or biliary ductal dilatation. Reviewed, Interpreted and Dictated by Sanna Chapman MD Transcribed by Sushma Tidwell Authenticated and [facility]
== END 2024-06-03 23:59 | disposition home or self-care (01) ==
LOC: RAD 08:17
PROVIDERS: PCP Nurse Practitioner Family; Visit Provider Nurse Practitioner Family
DX: K80.20 Calculus of gallbladder without cholecystitis without obstruction (principal)
CPT/HCPCS: 76705

== ENCOUNTER 2024-07-29 10:38 | Outpatient (CLI) | payer OTHER, SELFPAY ==
--- OUTSIDE RECORDS SUMMARY | 2024-07-29 10:41 | XMS_ITS | Continuity of Care Document ---
Author Organization [facility] Address [address] [place] [address] Care Team Providers Care Spooler Operator Name Role Phone ALLEN MAJOR Primary Care Provider Assessment Encounter Date Assessment Date Assessment LastModified by Organization Details LastModified Time 06/30/2024 06/30/2024 ASSESSMENT: Mattie Hernadez is a 33-year-old female with kidney stones in the right kidney. PLAN: 1. Discussed the two options for treating the kidney stones: shockwave lithotripsy and ureteroscopy with laser lithotripsy. 2. Explained the benefits and risks of both procedures, including the potential need for a stent and the success rates. 3. Recommended a metabolic evaluation to determine the cause of the stones, involving blood draws and a 24-hour urine collection. 4. Advised that if she experiences acute pain or pain with fever, she should call the office or go to the ER immediately. 5. Scheduled a date for the ureteroscopy with laser lithotripsy as the preferred treatment option. 6. Blood work to be done today, and the urine collection to be done after the stone removal. Please note this report was created using voice recognition/text compilation software with [employer]'s documentation services during the encounter with the patient; Please excuse any errors due to the senior java web application developer process. [email or web address] Not available 06/30/2024 10:18:01 Plan of Treatment Reminders Order Date Submit Date Provider Last Modified By Organization Details Last Modified Time Details Appointments FOLLOW UP 15 2024 08:30A Kristie NORTON MD Not available Not available Not available Lab PTH (parathyr oid hormone), intact + calcium, serum or plasma 2024 025 [email or web address] [facility] (Lab), [address], [place], [address], 07/29/2024 10:26:44 uric acid, serum or plasma 2024 025 [email or web address] [facility] (Lab), [address], [place], [address], 07/29/2024 10:27:17 magnesium , serum or plasma 2024 025 [email or web address] [facility] (Lab), [address], [place], [address], 07/29/2024 10:27:48 phosphoru s, serum or plasma 2024 025 [facility] [address] (Lab), [address], [place], [address], 07/29/2024 10:28:14 BMP, serum or plasma [email or web address] (Lab), [address], [place], [address], 07/29/2024 10:28:44 Referral None recorded. Procedures None recorded. Surgeries cystoscop y, with uretersco py, stone manipulat ion, with holmium laser, with possible stent placement (SURG) 2024 025 [email or web address] Not available 07/27/2024 11:39:36 Imaging None recorded. Medication Orders None recorded. Patient TargetsNo targets recorded. Patient InstructionsNo instructions recorded. Reason for Referral None Reported. Results Created Date Observation Date Name Description Value Unit Range Abnormal Flag Note LastModifiedBy Organization Detail LastModifiedTime 07/28/19 25 07/24/2024 fluor o less than 1 HR [facility] [address] [place] [address] Phone: Fax: Name: MATTIE HERNADEZ Exam Date: : 992 Age 34 years Gender : F Access ion: [id number] Physic abdon: SUE NORTON Facili ty: [place] Facili ty HSV: Outpat ient Exam: FLUORO LESS THAN 1 HR FL LESS THAN 1 HOUR INDICA TION: 10 ml iso 300 COMPAR GUS: None availa ble. FINDIN GS: Total fluoro scopy time was 17 second s Total of 2 images were obtain ed. Radiat ion dose: 6.9mGy DAP: uGy/cm 2 Intrao perati ve imagin g from a right ureter al stent placem ent Correl ate with intrao perati ve note. IMPRES OSMAN: 1. Intrao perati ve images as descri bed aboive were obtain ed. Please correl ate with final op note. Electr onical ly signed by: Jessa Drummond MD 2024 11:42 AM EDT RP Workst ation: [id number] Dictat ed By: Jessa Drummond Transc ribed By: Transc ribed On: 11:42 AM Electr onical ly signed by: Jessa Drummond Thank you for referr MATTIE Denny to [facility] al. Legall y authen ticate d by EMANUEL BUSH 07-27 11:42: 17 CC'ed Logic: Orderi ng Provid er: CIERRA ROGERS Attend ing Provid er: CIERRA ROGERS Admitt ing Provid er: CIERRA ROGERS INTERFACE [facility] - [facility] Therapy [address], [place], [address], 07/27/2024 11:47:41 Result Notes None recorded. Problems Name Problem SNOMED Code Status Onset Date Resolution Date Notes Provider Name and Address Organization Details Recorded Time Kidney stone 79804496 Active 025 SUE NORTON MD [address], [place], [address], [facility] & [place] 06/30/2024 10:17:55 Problem Notes None recorded. Procedures Surgical History Date Name Laterality Status Provider Name and Address Organization Details Recorded Time 8 section completed Shante Aquino [facility] & [place] 06/30/2024 10:07:44 Imaging Results None recorded. Procedure Notes None recorded. Medical Equipment None Reported. Allergies No known drug allergies Medications Name Sig Start Date Stop Date Status Note LastModified by Organization Details LastModified Time promethazin e-DM 6.25 mg-15 mg/5 mL oral syrup TAKE 5 ML BY MOUTH EVERY 4 TO 6 HOURS NEEDED FOR COUGH active Not Available Not Available No t Available trazodone 50 mg tablet TAKE 1 TABLET BY MOUTH EVERY NIGHT AT BEDTIME active Not Available Not Available No t Available prednisone 10 mg tablets in a dose pack FOLLOW PACKAGE DIRECTION S 06/30 completed Not Available Not Available Not Available amoxicillin 875 mg tablet TAKE 1 TABLET BY MOUTH EVERY 12 HOURS FOR 10 DAYS 06/30 completed Not Available Not Available Not Available fluticasone 100 mcg-salmete rol 50 mcg/dose blistr powdr for inhalation INHALE 1 PUFF BY MOUTH TWICE DAILY FOR SHORTNESS OF BREATH active Not Available Not Available No t Available nitrofurant oin monohydrate /macrocryst als 100 mg capsule TAKE 1 CAPSULE BY MOUTH EVERY 12 HOURS WITH FOOD FOR 7 DAYS 06/30 completed Not Available Not Available Not Available Vitals Date Recorded Body height Body mass index (BMI) Body weight Body temperature Oxygen saturation Oxygen saturation in Arterial blood by Pulse oximetry Heart rate Systolic blood pressure Diastolic blood pressure Provider Name and Address Organization Details Last Updated DateTime 177.8 cm 31 kg/m2 29900.3 9 g 97.6 [degF] 98 % 98 % 70 /min 122 mm[Hg] 70 mm[Hg] Keeley Butterfield [facility] & [place] 10:04:01 Social History None recorded. Functional Status Question Answer Note LastModified by Organizat ion Details LastModified Time Do you use any illicit or recreational drugs? No [email or web address] Information not available 06/30/2024 Do you or have you ever used any other forms of tobacco or nicotine? No Information not available 06/30/2024 What is your level of alcohol consumption? None [email or web address] Information not available 06/30/2024 Mental Status None recorded. Family History Relationship Description Onset Age of this Age Resolved Age Notes LastModified by Organization Details LastModified Time Mother Asthma [email or web address] Not available 06/30/2024 10:08:13 Mother Diabetes mellitus Not available 2024 10:08:34 Mother Atrial fibrillation [email or web address] Not available 10:10:40 Father Increased blood pressure [email or web address] Not available 2024 10:09:24 Father Diabetes mellitus [email or web address] Not available 2024 10:09:55 Medical History Condition Response Kidney Stones Y Gynecological HistoryNo gynecological history recorded. Obstetrics History GPAL:G 0 P 0 0 0 0 Past Encounters Encounter ID Performer Location Encounter Start Date Encounter Closed Date Diagnosis/Indication Diagnosis SNOMED-CT Code Diagnosis ICD10 Code Diagnosis Note [id number] SUE NORTON MD [facility] [place] [address] 06/30/2024 09:44:21 06/30/2024 10:54:22 Kidney stone 36881102 N20.0 Health Concerns Section Related Observation LastModified by Organization Detai ls LastModified Time None Recorded Concern Status LastModified by Organization Details LastModified Time None Recorded Payers Encounter Date Sequence Insurance Name Policy Number Policy Barker Covered Member ID Barker Member ID Guarantor Name 06/30/2024 1 [facility] [id number] Mattie Hernadez [id number] Mattie Hernadez Notes Date Note Type Note Provider Name and Address Organization Details Recorded Time 06/30/2024 text/html 06/30/24 77-hzfc-qqr-female referred to my office for right renal stones Mattie Hernadez is a 33-year-old female who presents for a new patient visit. She has been experiencing random pain in her stomach, specifically on the right side, which led to a test procedure to check for gallstones. The pain has been absent for approximately a month. She has not had any procedures or passed any stones before. There are a couple of stones in the right kidney, with the largest being approximately 10 to 11 millimeters at the bottom, and a few smaller stones. 05/29/24 CT abd/pel w/w/o ([facility]): there are multitude of right renal stones measuring up to 10mm, no left renal stones are visualized, the urinary bladder is unremarkable SUE NORTON MD [address], [place], [address], [facility] - [facility] 07/01/2024 12:23:01 OBGyn Episode No OBEpisode recorded.
--- OUTSIDE RECORDS SUMMARY | 2024-07-29 10:41 | XMS_ITS | Data Portability ---
Author Organization [facility] [place] [facility]AN Cullen ADMIN Address [address] [place] [address] Care Team Providers Care Adult Basic Education Teacher Name Role Phone ALLEN MAJOR Primary Care Provider [phone] Assessment Encounter Date Assessment Date Assessment LastModified [...] created using voice recognition/text compilation software with [employer]'s documentation services during the encounter with the patient; Please excuse any errors due to the building services supervisor process. [email or web address] Not available 06/30/2024 10:18:01 Plan of Treatment Reminders Order Date Submit Date Provider Last Modified By Organization Details Last Modified Time Details Appointments FOLLOW UP 15 2024 08:30A Kristie NORTON MD Not available Not available Not available Lab PTH (parathyr oid hormone), intact + calcium, serum or plasma 2024 025 [email or web address] [facility] (Lab), [address], [place], [address], 07/29/2024 10:26:44 uric acid, serum or plasma 2024 025 [email or web address] [facility] (Lab), [address], [place], [address], 07/29/2024 10:27:17 magnesium , serum or plasma 2024 025 [email or web address] [facility] (Lab), [address], [place], [address], 07/29/2024 10:27:48 phosphoru s, serum or plasma 2024 025 [email or web address] [facility] (Lab), [address], [place], [address], 07/29/2024 10:28:14 BMP, serum or plasma 2024 025 [email or web address] [facility] (Lab), [address], [place], [address], 07/29/2024 10:28:44 Referral None recorded. Procedures None recorded. Surgeries cystoscop y, with uretersco py, stone manipulat ion, with holmium laser, with possible stent placement (SURG) 2024 025 [email or web address] Not available 07/27/2024 11:39:36 Imaging None recorded. Medication Orders None recorded. Patient TargetsNo targets recorded. Patient InstructionsNo instructions recorded. Reason for Referral None Reported. Results Created Date Observation Date Name Description Value Unit Range Abnormal Flag Note LastModifiedBy Organization Detail LastModifiedTime 07/28/19 25 07/24/2024 [facility] [address] [place] [address] Phone: Fax: Name: MATTIE HERNADEZ Exam Date: : 992 Age 34 years Gender : F Access ion: [id number] Physic abdon: SUE NORTON Facili ty: [facility] Facili ty HSV: Outpat ient Exam: [...] by: Jessa Drummond Thank you for referr silvio HERNADEZ MATTIE to [facility]. Legall y authen ticate d by EMANUEL BUSH 0 07-27 11:42: 17 CC'ed Logic: Orderi ng Provid er: CIERRA ROGERS Attend ing Provid er: CIERRA ROGERS Admitt ing Provid er: CIERRA ROGERS INTERFACE [facility] - Physical Therapy [address], [place], [address], 07/27/2024 11:47:41 Result Notes None recorded. Problems Name Problem SNOMED Code Status Onset Date Resolution Date Notes Provider Name and Address Organization Details Recorded Time Kidney stone 75526846 Active SUE NORTON MD [address], [place], [address], [facility] & [place] 06/30/2024 10:17:55 Problem Notes None recorded. Procedures Surgical History Date Name Laterality Status Provider Name and Address Organization Details Recorded Time 8 section completed Shante Mcdanieln [facility] & [place] 06/30/2024 10:07:44 Imaging Results None recorded. Procedure [...] and Address Organization Details Last Updated DateTime 5 177.8 cm 31 kg/m2 35529.3 9 g 97.6 [degF] 98 % 98 % 70 /min 122 mm[Hg] 70 mm[Hg] Keeley Butterfield [facility] & [place] 10:04:01 Social History None recorded. Functional Status Question Answer Note LastModified by Organizat ion Details LastModified Time Do you use any illicit or recreational drugs? No [email or web address] Information not available 06/30/2024 Do you or have you ever used any other forms of tobacco or nicotine? No [email or web address] Information not available 06/30/2024 What is your level of alcohol consumption? None [email or web address] Information not available 06/30/2024 Mental Status None recorded. Family History Relationship Description Onset Age of this Age Resolved Age Notes LastModified by Organization Details LastModified Time Mother Asthma [email or web address] Not available 06/30/2024 10:08:13 Mother Diabetes mellitus Not available 2024 10:08:34 Mother Atrial fibrillation [email or web address] Not available 10:10:40 Father Increased blood pressure [email or web address] Not available 2024 10:09:24 Father Diabetes mellitus [email or web address] Not available 2024 10:09:55 Medical History Condition Response Kidney Stones Y Gynecological HistoryNo gynecological history recorded. Obstetrics History GPAL:G 0 P 0 0 0 0 Past Encounters Encounter ID Performer Location Encounter Start Date Encounter Closed Date Diagnosis/Indication Diagnosis SNOMED-CT Code Diagnosis ICD10 Code Diagnosis Note [id number] SUE NORTON MD [facility]rology-[address] [place] [address] 06/30/2024 09:44:21 06/30/2024 10:54:22 Kidney stone 56682742 N20.0 Health Concerns Section Related Observation LastModified by Organization Detai ls LastModified Time None Recorded Concern Status LastModified by Organization Details LastModified Time None Recorded Advance Directives Directive None Recorded Payers Insurance Date Sequence Insurance Name Policy Number Policy Barker Covered Member ID Barker Member ID Guarantor Name 07/27/2024 1 [facility] [id number] Mattie Hernadez [id number] Mattie Hernadez Notes Date Note Type Note Provider Name and Address Organization Details Recorded Time 06/30/2024 text/html 06/30/24 46-wgbz-bov-female referred to my office for right renal [...] few smaller stones. 05/29/24 CT abd/pel w/w/o ([facility]): there are multitude of right renal stones measuring up to 10mm, no left renal stones are visualized, the urinary bladder is unremarkable SUE NORTON MD [address], [place], [address], [place] [facility] [place] [facility] [place] 07/01/2024 12:23:01 07/24/2024 text/plain Operative/Proced ure Note [facility] Name Mattie Hernadez Date of Service 0819 [id number] (F) Attending CIERRA ROGERS Bessy GRE[place] Admitted [id number] Discharged Primary MAJOR ALLEN - Pre-Procedure Diagnosis Right renal stones Post- Procedure Diagnosis Same Procedure / Surgery None 1. Cystoscopy with right ureteral catheterization 2. Right retrograde pyelogram 3. Right ureteroscopy with laser lithotripsy and stent placement 4. Right ureteroscopy with basket stone extraction Anesthesia Type General anesthesia Estimated Blood Loss Minimal Complications None Procedure Description / Findings After informed consent was obtained from the patient, she was taken the operating room where she was placed in a comfortable supine position on the procedure table. Time-out was performed confirming correct patient, correct procedure, and correct operative site. General anesthesia was induced and preoperative IV antibiotics were administered. She was then placed in dorsal lithotomy position genitals were prepped and draped usual sterile fashion. We inserted the rigid cystoscope and visualized the right ureteral orifice. This was catheterized with a 5 [place]an open-ended [place] catheter and right retrograde pyelogram was performed. Two sensor tip guidewires were advanced under fluoroscopic guidance. We then advanced a 12/14 Zimbabwean ureteral access sheath to the proximal right ureter. Flexible ureteroscope was then inserted. We inspected each calyx with a 10 mm stone seen in a lower pole calyx and a smaller 4-5 mm stone in the upper pole calyx. Using a 270 micron laser fiber, we began laser lithotripsy. The stone was broken into numerous smaller pieces with most lithotripsy resulting in dusting of the stone itself. Once both stones were broken, we then withdrew the ureteroscope. We reinserted the ureteroscope with a ZeroTip Nitinol basket. All significant stone fragments were removed and passed off the field. We then withdrew the ureteroscope down the full length of the right ureter with no additional fragments seen. We reinserted the cystoscope and advanced a 6 Zimbabwean by 24 cm double-J ureteral stent over our remaining guidewire under fluoroscopic. The wire was removed and we visualized the proximal coil in the right renal pelvis under fluoro with the distal coil directly visualized in the bladder lumen. The bladder was drained through the cystoscope sheath and viscous lidocaine 2% gel was instilled in urethra. The procedure was terminated, the patient was awoken transferred to the PACU in stable condition Specimens 1 of 2 Operative/Procedure Note [facility] Name Mattie Hernadez Date of Service 08 [id number] (F) Attending CIERRA GREEN Admitted [id number] Discharged Primary PEDRITO VILLA - Right kidney stone fragments Tubes/Drains None Implants Right ureteral stent Disposition of Patient Stable to PACU Electronically signed by CIERRA GREEN on 0822 2 of 2 CC'ed Logic: Ordering Provider: CIERRA ROGERS Attending Provider: CIERRA ROGERS Admitting Provider: [facility] [place] [facility] [place] 07/24/2024 10:36:03 OBGyn Episode No OBEpisode recorded.
[2024-07-29 11:56] LABS: Chloride 108 mmol/L (98-107); Potassium 4.8 mmoL/L (3.5-5.1); Sodium 140 mmol/L (136-145)
[2024-07-29 11:59] LABS: Anion Gap 8.8 mEq/L (5-15); Blood Urea Nitrogen 11 mg/dl (7-17); Calcium 9.6 mg/dl (8.4-10.2); Carbon Dioxide 28 mmol/L (22.0-30.0); Estimated Glomerular Filt Rate 83 ml/min (>60); GFR (African American) 100 ML/MIN (>60); Glucose 92 mg/dl (74-100); Phosphorous 3.7 mg/dl (2.5-4.5)
[2024-07-29 12:00] LABS: Magnesium 1.8 mg/dl (1.6-2.3)
[2024-07-29 12:51] LABS: Intact Parathyroid Hormone 62.6 pg/mL (7.5-53.5)
== END 2024-07-29 23:59 | disposition home or self-care (01) ==
LOC: LAB 10:38
PROVIDERS: PCP Nurse Practitioner Family; Visit Provider Urology
DX: N20.0 Calculus of kidney (principal)
CPT/HCPCS: 36415; 80048; 83735; 83970; 84100

== ENCOUNTER 2024-09-14 11:20 | Outpatient (CLI) | payer OTHER, SELFPAY ==
--- OUTSIDE RECORDS SUMMARY | 2024-09-14 11:22 | XMS_ITS | Clinical Summary ---
Author Organization Healthcare Address [address] [place] [address] Care Team Providers Care Paper And Prints Restorer Name Role Phone Unavailable Primary Care Provider Unavailabl e Social History Tobacco Use Types Packs/Day Years Used Date Smoking Tobacco: Never Assessed Comments Unknown Sex and Gender Information Value Date Recorded Sex Assigned at Not on file Legal Sex Female 6:04 PM EDT Gender Identity Not on file Sexual Orientation Not on file Plan of Treatment Upcoming Encounters Date Type Department Care Team (Late st Contact Info) Description 10/26/2024 3:40 PM EDT Office Visit Vicente Musa [facility] Endocrinology [address] [place] [address] Tripp Abernathy MD [address] [place] [address] Health Maintenance Due Date Last Done Comments [facility]-Depression Screening 1991 [facility]-HIV Screening 1991 [facility]-Hepatitis C Screening 1991 [facility]-/Child/Adol SDOH Screenings 1991 [facility]-Varicella Vaccines (1 of 2 - 13+ 2-dose series) 07/21/2004 HPV Vaccines (1 - 3-dose series) 07/21/2006 [facility]- SDOH Screenings 07/21/2009 [facility]-Adult SDOH Screenings 07/21/2009 [facility]-DTaP,Tdap,and Td Vaccine s (1 - Tdap) 07/21/2010 [facility]-Hepatitis B Vaccines (1 of 3 - 19+ 3-dose series) 07/21/2010 [facility]-Pap Smear 07/21/2012 [facility]-Cervical Cancer Screening 07/21/2021 [facility]-HPV/Cotest 07/21/2021 [id number] Vaccine (1 - 20 24-25 season) 2023 [facility]-Influenza Vaccine (#1) 2024 [facility]-Zoster Vaccines (1 of 2) 07/21/2041 [facility]-HIB Vaccines Aged Out No longer e ligible based on patient's age to complete this topic [facility]-Hepatitis A Vaccines Aged Out No longer eligible based on patient's age to complete this topic [facility]-IPV Vaccines Aged Out No longer e ligible based on patient's age to complete this topic [facility]-Pneumococcal Vaccine: Pediatrics (0 to 5 Years) and At-Risk Patients (6 to 49 Years) Aged Out No long er eligible based on patient's age to complete this topic [facility]-Rotavirus Vaccines Aged Out No lo nger eligible based on patient's age to complete this topic Insurance [facility]
[2024-09-14 12:38] LABS: Magnesium 1.8 mg/dl (1.6-2.3); Phosphorous 3.2 mg/dl (2.5-4.5); Uric Acid 4.6 mg/dl (2.5-6.2)
== END 2024-09-14 23:59 | disposition home or self-care (01) ==
LOC: LAB 11:20
PROVIDERS: PCP Nurse Practitioner Family; Visit Provider Urology
DX: N20.0 Calculus of kidney (principal)
CPT/HCPCS: 36415; 83735; 83970; 84100; 84550

== ENCOUNTER 2024-09-17 12:58 | Outpatient (CLI) | payer OTHER, SELFPAY ==
--- OUTSIDE RECORDS SUMMARY | 2024-09-17 13:04 | XMS_ITS | Clinical Summary ---
Author Organization Healthcare Address [address] [place] [address] Care Team Providers Care Slot Floor Person Name Role Phone Unavailable Primary Care Provider [...] 3:40 PM EDT Office Visit Vicente Musa [facility] Endocrinology [address] [place] [address] Tripp Abernathy MD [address] [place] [address] Health Maintenance Due Date Last [...] 07/21/2012 [facility]-Cervical Cancer Screening 07/21/2021 [facility]-HPV/Cotest 07/21/2021 [id number] Vaccine (1 - 20 24-25 season) 2023 [...] patient's age to complete this topic Insurance [facility]
[2024-09-17 13:09] LABS: Hematocrit 37.6 % (37.0-47.0); Hemoglobin 12.2 g/dL (12.2-16.2); Immature Granulocytes % 0.2 %; Mean Corpuscular HGB Conc 32.4 g/dL (31.8-35.4); Mean Corpuscular Hemoglobin 27.9 pg (27.0-31.2); Mean Corpuscular Volume 85.8 fl (81-99); Nucleated Red Blood Cells % 0 %; Platelet Count 320 K/mm3 (142-424); Red Blood Count 4.38 M/mm3 (4.20-5.40); Red Cell Distribution Width-SD 46.7 fL; White Blood Count 8.4 K/mm3 (4.8-10.8)
[2024-09-17 13:32] LABS: Albumin Level 5.1 g/dl (3.5-5.0); Chloride 103 mmol/L (98-107)
[2024-09-17 13:33] LABS: Potassium 3.9 mmoL/L (3.5-5.1); Sodium 136 mmol/L (136-145)
[2024-09-17 13:35] LABS: Alanine Aminotransferase 23 U/L (12-78); Albumin/Globulin Ratio 1.7 (1.1-1.8); Anion Gap 12.9 mEq/L (5-15); Aspartate Amino Transferase 29 U/L (14-36); Blood Urea Nitrogen 13 mg/dl (7-17); Carbon Dioxide 24 mmol/L (22.0-30.0); Creatinine,Serum 0.80 mg/dl (0.52-1.04); Estimated Glomerular Filt Rate 83 ml/min (>60); GFR (African American) 100 ML/MIN (>60); Globulin 3.0 g/dL (1.3-3.2); Total Protein,Serum 8.1 g/dl (6.3-8.2)
[2024-09-17 13:36] LABS: Alkaline Phosphatase 73 U/L (38-126); Bilirubin,Total 0.3 mg/dl (0.2-1.3); Calcium 9.7 mg/dl (8.4-10.2); Glucose 97 mg/dl (74-100); Iron 82 ug/dL (37-170)
[2024-09-17 13:45] LABS: Total Iron Binding Capacity 417 ug/dL (265-497)
[2024-09-17 14:12] LABS: Ferritin 6.55 ng/ml (6.24-137)
== END 2024-09-17 23:59 | disposition home or self-care (01) ==
LOC: LAB 12:58
PROVIDERS: PCP Nurse Practitioner Family; Visit Provider Nurse Practitioner Family
DX: D50.9 Iron deficiency anemia, unspecified (principal); R41.3 Other amnesia; R53.83 Other fatigue
CPT/HCPCS: 36415; 80053; 82728; 83540; 83550; 85025

== ENCOUNTER 2024-10-14 10:14 | Emergency (ER) | payer OTHER, SELFPAY ==
--- OUTSIDE RECORDS SUMMARY | 2024-10-14 10:24 | XMS_ITS | Clinical Summary ---
Author Organization Healthcare Address [address] [place] [address] Care Team Providers Care Stud Sheep Farmer Name Role Phone Unavailable Primary Care Provider [...] 3:40 PM EDT Office Visit Vicente Musa [facility] Endocrinology [address] [place] [address] Tripp Abernathy MD [address] [place] [address] Health Maintenance Due Date Last Done Comments [facility]-Depression Screening 1991 [facility]-HIV Screening 1991 [facility]-Hepatitis C Screening 1991 [facility]-/Child/Adol SDOH Screenings 1991 [facility]-Varicella Vaccines (1 of 2 - 13+ 2-dose series) 07/21/2004 [facility]- SDOH Screenings 07/21/2009 [facility]-Adult SDOH Screenings 07/21/2009 [facility]-DTaP,Tdap,and Td Vaccine s (1 - Tdap) 07/21/2010 [facility]-Hepatitis B Vaccines (1 of 3 - 19+ 3-dose series) 07/21/2010 [facility]-Pap Smear 07/21/2012 HPV Vaccines (1 - 3-dose SCD M series) 07/21/2018 [facility]-Cervical Cancer Screening 07/21/2021 [facility]-HPV/Cotest 07/21/2021 [id number] Vaccine (1 - 20 24-25 season) 2023 [...] patient's age to complete this topic Insurance [facility]
[2024-10-14 10:30] VITALS: BP 132/89; PULSE 81; RESP 19; O2SAT 99
--- NOTE | 2024-10-14 10:32 | ED_ITS ---
Discharge Plan Disposition Patient Disposition: Home, Self-Care Prescriptions Prescriptions: No Action cholecalciferol (vitamin D3) 50 mcg (2,000 unit) capsule 50 mcg PO DAILY Qty: 90 3RF ciprofloxacin HCl 250 mg tablet 250 mg PO BID Qty: 6 0RF trazodone 50 mg tablet 50 mg PO HS Qty: 90 2RF Referrals Follow up/Referrals: Danielle Castillo APRN [Primary Care Provider, Family Practice] - See instructions Activity Restrictions/Add. Instructions Additional Instructions/Restrictions: Thank you for allowing us to care for you today. Fortunately laboratory workup is reassuring. Your troponins are normal. This is a value that is a marker of cardiac injury. Your CBC and CMP were normal as well. Your EKG was also reassuring. Your urine does not demonstrate signs of infection. It is uncertain the cause of your chest pressure at this time. It is possible your anxiety could be causing the symptoms. Please follow-up with your primary care provider regarding today's visit. If any symptoms are worsening, please return. Clinical Impressions Clinical Impression: Chest pressure Print Language Print Language: Slovenian Discharge ED Provider: Osvaldo Wiggins General Adult HPI <LOU Curiel - Last Filed: 10/14/24 14:17> General Chief complaint: Chest Pain Stated complaint: chgest pressure, fast heart rate Time Seen by Provider: 10/14/24 10:16 History of Present Illness HPI narrative: This is a 34-year-old female presenting to the emergency department today for evaluation of chest pressure. Patient reports chest pressure that began last night. She describes this as feeling like something heavy is sitting on her chest. She denies any chest pain. The pressure sensation does not radiate anywhere. Patient reports this happened once before a couple years ago and was associated with her anxiety. Patient has since been off anxiety medications over the last 2 years and symptoms have been well-controlled. There is no enticing event. Patient denies any acid reflux, nausea, abdominal pain. She is not on oral contraceptives. She does not have a cough or fever. Patient was recently on ciprofloxacin for 3 days to treat a urinary tract infection. Last dose of that medication was 6 days ago. Patient reports she does not have any pain with urination but does continue to have urinary frequency. Please note that the above description of symptoms, and this electronic medical record under categorization of was recalled from ER triage doctor by RN reflective of an initial nursing assessment, however, is not reflective of my full history and physical exam I was personally taken and clarified. Consequentially, this preceding description of symptoms which may include the patient's categorize chief complaint in the EMR, do not reflect my personal clinical impression, and the ultimate description of history of present illness send patient stated complaints should be deferred to the section of the note. Unless stated otherwise were congruent with the section of the note, additional signs, symptoms, or incongruence should be interpreted as an accurate with my clinical impression. Related Data Previous Rx's ?Medication ?Instructions ?Recorded cholecalciferol (vitamin D3) 50 50 mcg PO DAILY #90 ca ps 05/11/24 mcg (2,000 unit) capsule trazodone 50 mg tablet 50 mg PO HS #90 tabs 5 ciprofloxacin HCl 250 mg tablet 250 mg PO BID #6 tabs 10/05/24 Allergies Allergy/AdvReac Type Severity Reaction Status Date / Time No Known Allergies Allergy Verified 10/05/24 14:22 [facility] <LOU Curiel - Last Filed: 10/14/24 14:17> [facility] Disclaimer: The information contained in this section may have been updated after the patient was seen, as this information can be updated by other users. Medical History Iron deficiency anemia Respiratory infection Encounter to establish care Wheezing Pharyngitis URI (upper respiratory infection) Chest pain Healthcare maintenance Hepatitis A antibody positive Acute viral syndrome Viral pharyngitis Strep throat Otitis media Otitis externa UTI (urinary tract infection) Family history of colon cancer grandfather Depression Anxiety Rheumatoid arteritis Surgical History History of section Family History Grandfather Cancer colon Other Asthma Coronary artery disease Diabetes Hyperlipidemia Hypertension Social History Smoking Status: Never smoker alcohol intake: never substance use type: denies use current occupational status: employed Travel in the last 8 weeks?: None Have you lived/traveled outside US in past 30 days?: No Contact w/someone who lives/traveled outside US past 30 days?: No Exposure to someone with infectious disease in past 14 days?: No Do you have a fever (greater than 100.4 F or 38 C)?: No Have you tested positive for COVID-19?: No Exposed to someone with COVID-19 in past 14 days?: No Do you have a sore throat?: No Do you have a cough?: No Do you have any weakness?: No Do you have any diarrhea?: No Are you experiencing any unusual bleeding?: No Do you have any muscle aches/pain?: No Do you have any abdominal pain?: No Are you experiencing loss of taste or smell?: No Other Medical History Have you received the Pneumonia Vaccine: No <Osvaldo Wiggins MD - Last Filed: 10/14/24 10:42> ROS Obtained: Yes Systems reviewed as appropriate & no additional complaints except as documented Physical Exam <LOU Curiel - Last Filed: 10/14/24 14:17> General General appearance: alert and in no apparent distress Head Head exam: atraumatic and normocephalic Neck Neck exam: Present full ROM Respiratory Respiratory exam: Present normal lung sounds bilaterally; Absent respiratory distress Cardiovascular Cardiovascular exam: Present regular rate and normal rhythm Abdominal Exam Abdominal exam: Present soft; Absent distention or tenderness Neurological Exam Neurological exam: Present alert and oriented X3 Medical Decision Making <LOU Curiel - Last Filed: 10/14/24 14:17> Medical Records Screening: Per USPSTF and CDC recommendations, given the prevalence of disease in our region, it is our hospital?s policy to screen for HIV and viral Hepatitis for all patients aged 18 and over and those with ongoing risk factors. Nadeem Inquiry Pt receiving controlled substance: No Vital Signs: 10/14/24 10:30 10/14/24 10:35 10/14/24 10:35 Temperature 98.6 F 98.6 F Temperature Source Oral Oral Pulse Rate 81 80 Pulse Rate [Right] 80 Respiratory Rate 19 16 16 Blood Pressure 132/89 141/96 H Blood Pressure [Left Arm] 141/96 H Blood Pressure Mean [Left Arm] 111 02 Sat by Pulse Oximetry 99 100 100 Oxygen Delivery Method Room Air Room Air 10/14/24 11:00 Temperature Temperature Source Pulse Rate 76 Pulse Rate [Right] Respiratory Rate 20 Blood Pressure 111/82 Blood Pressure [Left Arm] Blood Pressure Mean [Left Arm] 02 Sat by Pulse Oximetry 97 Oxygen Delivery Method Lab Data Lab results reviewed: Yes I reviewed the patient's lab results. Lab Results 10/14/24 10:24: Urine Color Yellow, Urine Appearance Clear, Urine pH 6.0, Ur Specific [place] 1.008, Urine Protein Negative, Urine Glucose (UA) Negative, Urine Ketones Negative, Urine Blood Negative, Urine Nitrate Negative, Urine Bilirubin Negative, Urine Urobilinogen 0.2, Ur Leukocyte Esterase Trace, Urine RBC Occasional, Urine WBC 3-5, Ur Squamous Epith Cells 10-20, Urine Bacteria Trace, Urine HCG, Qual Negative 10/14/24 10:30: WBC 7.1, RBC 4.29, Hgb 11.7 L, Hct 36.7 L, MCV 85.5, MCH 27.3, MCHC 31.9, RDW 15.1, Plt Count 272, MPV 11.7 H, Neut % (Auto) 56.5, Lymph % (Auto) 33.8, [place] % (Auto) 7.3, Eos % (Auto) 1.4, Baso % (Auto) 0.7, Neut # (Auto) 4.0, Lymph # (Auto) 2.4, [place] # (Auto) 0.5, Eos # (Auto) 0.1, Baso # (Auto) 0.1, Sodium 139, Potassium 3.9, Chloride 103, Carbon Dioxide 27, Anion Gap 12.9, BUN 10, Creatinine 0.60, Estimated Creat Clear 210, Estimated GFR 115, Est GFR ( Amer) 139, Glucose 86, Calcium 9.7, Total Bilirubin 0.6, AST 38 H, ALT 23, Alkaline Phosphatase 67, Troponin I < 0.01, Total Protein 8.0, Albumin 4.8, Globulin 3.2, Albumin/Globulin Ratio 1.5, Lipase 109 10/14/24 13:16: Troponin I < 0.01 10/14/24 10:30 10/14/24 10:30 Orders (Tests/Meds): ORDERS Category Date Time Status Chest XR -- portable [XR chest portable] Stat Exams 10/14/24 10:40 Completed CBC w/Auto Diff [Complete Blood Count Auto Diff] Stat Lab 10/14/24 10:30 Completed CMP [Comprehensive Metabolic Panel] Stat Lab 10/14/24 10:30 Completed Lipase Stat Lab 10/14/24 10:30 Completed Trop I [Troponin I] Stat Lab 10/14/24 10:30 Completed Troponin I Q3H Lab 10/14/24 13:16 Completed Troponin I Q3H Lab 10/14/24 16:45 Ordered Urinalysis and Microscopic Stat Lab 10/14/24 10:24 Completed Urine , HCG Qual. Stat Lab 10/14/24 10:24 Completed Urine Culture Stat Micro 10/14/24 10:24 Received HEART Score History (anamnesis): Slightly suspicious ECG: Normal Age: <45 years Risk factors: No known risk factors Troponin: </= normal limit HEART Score: 0 Medical Decision Narrative: In summary, this is a 34-year-old female presenting to the emergency department today for evaluation of chest pressure. Patient denies pain and radiation of symptoms. This happened several years ago when she was diagnosed with anxiety. She was put on anxiety medications at that time but has been off of medications for the last 2 years. She is not on oral contraceptive pills or any form of hormones. PERC score 0. Laboratory workup reassuring. CBC without leukocytosis. H&H stable. CMP normal. First troponin is normal. Chest x-ray is normal. Urinalysis had trace leukocytes. On microscopic there is only 3-5 white blood cells with 10-20 squamous epithelial cells. This is likely a contaminated sample. We will send urine culture. Urine hCG negative. Patient remains well. No acute distress. No change in symptoms. We are awaiting second troponin. Repeat troponin is negative. Heart score 0. Patient remains well. She has not had any chest pain while in the emergency department. At this time emergent etiology has been considered and risk is low based on PERC and heart scores of 0. Patient does not have suspicious symptoms for ACS. We discussed uncertain etiology of chest pain, though it may be possible patient is experiencing anxiety given similar symptoms in the past that were controlled with antianxiety medications. Patient should follow-up with her primary care provider regarding today's visit. Return precautions were discussed and understood. Patient is stable for safe discharge home at this time. <Osvaldo Wiggins MD - Last Filed: 10/14/24 10:42> Vital Signs: 10/14/24 10:30 10/14/24 10:35 10/14/24 10:35 Temperature 98.6 F 98.6 F Temperature Source Oral Oral Pulse Rate 81 80 Pulse Rate [Right] 80 Respiratory Rate 19 16 16 Blood Pressure 132/89 141/96 H Blood Pressure [Left Arm] 141/96 H Blood Pressure Mean [Left Arm] 111 02 Sat by Pulse Oximetry 99 100 100 Oxygen Delivery Method Room Air Room Air 10/14/24 11:00 Temperature Temperature Source Pulse Rate 76 Pulse Rate [Right] Respiratory Rate 20 Blood Pressure 111/82 Blood Pressure [Left Arm] Blood Pressure Mean [Left Arm] 02 Sat by Pulse Oximetry 97 Oxygen Delivery Method Lab Data Lab Results 10/14/24 10:24: Urine Color Yellow, Urine Appearance Clear, Urine pH 6.0, Ur Specific [place] 1.008, Urine Protein Negative, Urine Glucose (UA) Negative, Urine Ketones Negative, Urine Blood Negative, Urine Nitrate Negative, Urine Bilirubin Negative, Urine Urobilinogen 0.2, Ur Leukocyte Esterase Trace, Urine RBC Occasional, Urine WBC 3-5, Ur Squamous Epith Cells 10-20, Urine Bacteria Trace, Urine HCG, Qual Negative 10/14/24 10:30: WBC 7.1, RBC 4.29, Hgb 11.7 L, Hct 36.7 L, MCV 85.5, MCH 27.3, MCHC 31.9, RDW 15.1, Plt Count 272, MPV 11.7 H, Neut % (Auto) 56.5, Lymph % (Auto) 33.8, [place] % (Auto) 7.3, Eos % (Auto) 1.4, Baso % (Auto) 0.7, Neut # (Auto) 4.0, Lymph # (Auto) 2.4, [place] # (Auto) 0.5, Eos # (Auto) 0.1, Baso # (Auto) 0.1, Sodium 139, Potassium 3.9, Chloride 103, Carbon Dioxide 27, Anion Gap 12.9, BUN 10, Creatinine 0.60, Estimated Creat Clear 210, Estimated GFR 115, Est GFR ( Amer) 139, Glucose 86, Calcium 9.7, Total Bilirubin 0.6, AST 38 H, ALT 23, Alkaline Phosphatase 67, Troponin I < 0.01, Total Protein 8.0, Albumin 4.8, Globulin 3.2, Albumin/Globulin Ratio 1.5, Lipase 109 10/14/24 13:16: Troponin I < 0.01 Orders (Tests/Meds): ORDERS Category Date Time Status Chest XR -- portable [XR chest portable] Stat Exams 10/14/24 10:40 Completed CBC w/Auto Diff [Complete Blood Count Auto Diff] Stat Lab 10/14/24 10:30 Completed CMP [Comprehensive Metabolic Panel] Stat Lab 10/14/24 10:30 Completed Lipase Stat Lab 10/14/24 10:30 Completed Trop I [Troponin I] Stat Lab 10/14/24 10:30 Completed Troponin I Q3H Lab 10/14/24 13:16 Completed Troponin I Q3H Lab 10/14/24 16:45 Ordered Urinalysis and Microscopic Stat Lab 10/14/24 10:24 Completed Urine , HCG Qual. Stat Lab 10/14/24 10:24 Completed Urine Culture Stat Micro 10/14/24 10:24 Received ECG Data Tracing #1: Independently inter by me rate is 93, rhythm is regular, axis is normal, no ST elevation in anatomical contiguous leads, QTc 381. Critical Care <LOU Curiel - Last Filed: 10/14/24 14:17> Critical Care Time Critical Care Time: No
[2024-10-14 10:35] VITALS: BP 141/96; PULSE 80; RESP 16; TEMP 37; O2SAT 100; BMI 31.5
--- NOTE | 2024-10-14 10:40 | XR_ITS ---
FINAL REPORT CLINICAL HISTORY: chest pressure COMPARISON: None FINDINGS: The heart size is normal. The mediastinum is normal. There is no focal infiltrate or edema. The lungs are underinflated. There are no pleural effusions. There is no pneumothorax. There is no osseous abnormality. IMPRESSION: No acute cardiopulmonary process Reviewed, Interpreted and Dictated by Tin Carr MD Transcribed by Sushma Tidwell Authenticated and [facility]
[2024-10-14 10:47] LABS: Microscopic, Urine URINE MICROSCOPIC (MICROSCOPIC)
[2024-10-14 10:52] LABS: Hematocrit 36.7 % (37.0-47.0); Hemoglobin 11.7 g/dL (12.2-16.2); Immature Granulocytes % 0.3 %; Mean Corpuscular HGB Conc 31.9 g/dL (31.8-35.4); Mean Corpuscular Hemoglobin 27.3 pg (27.0-31.2); Mean Corpuscular Volume 85.5 fl (81-99); Nucleated Red Blood Cells % 0 %; Platelet Count 272 K/mm3 (142-424); Red Blood Count 4.29 M/mm3 (4.20-5.40); Red Cell Distribution Width-SD 47.1 fL; White Blood Count 7.1 K/mm3 (4.8-10.8)
[2024-10-14 10:58] LABS: Alanine Aminotransferase 23 U/L (12-78); Albumin Level 4.8 g/dl (3.5-5.0); Albumin/Globulin Ratio 1.5 (1.1-1.8); Alkaline Phosphatase 67 U/L (38-126); Anion Gap 12.9 mEq/L (5-15); Aspartate Amino Transferase 38 U/L (14-36); Bilirubin,Total 0.6 mg/dl (0.2-1.3); Blood Urea Nitrogen 10 mg/dl (7-17); Calcium 9.7 mg/dl (8.4-10.2); Carbon Dioxide 27 mmol/L (22.0-30.0); Chloride 103 mmol/L (98-107); Creatinine Clearance Estimated 210 mL/min (50-200); Creatinine,Serum 0.60 mg/dl (0.52-1.04); Estimated Glomerular Filt Rate 115 ml/min (>60); GFR (African American) 139 ML/MIN (>60); Globulin 3.2 g/dL (1.3-3.2); Glucose 86 mg/dl (74-100); Lipase 109 U/L (23-300); Potassium 3.9 mmoL/L (3.5-5.1); Sodium 139 mmol/L (136-145); Total Protein,Serum 8.0 g/dl (6.3-8.2)
[2024-10-14 10:59] LABS: Urine Pregnancy, HCG Qual. Negative (Negative)
[2024-10-14 11:00] VITALS: BP 111/82; PULSE 76; RESP 20; O2SAT 97
[2024-10-14 11:41] LABS: Bilirubin,Urine Negative (Negative); Color,Urine YELLOW (Yellow); Glucose,Urine (UA) Negative (Negative); Ketones,Urine Negative (Negative); Leukocyte Esterase,Urine TRACE (Negative); PH,Urine 6.0 (5.0-8.5); Protein,Urine Negative (Negative); Urobilinogen,Urine 0.2 EU/dl (0.2)
[2024-10-14 11:43] LABS: Specific Gravity, Urine 1.008 (1.005-1.030)
[2024-10-14 11:45] LABS: Bacteria,Urine Trace /lpf; RBC,Urine Occasional #/hpf (0-3)
--- NOTE | 2024-10-14 11:47 | PC.NURSE ---
I called lab to check on the status of the pts troponin results. Darian states it will be ten more minutes.
[2024-10-14 12:09] LABS: Troponin I < 0.01 ng/ml (0.00-0.034)
[2024-10-14 14:03] LABS: Troponin I < 0.01 ng/ml (0.00-0.034)
[2024-10-14 14:17] VITALS: BP 120/82; PULSE 75; RESP 16; TEMP 36.6; O2SAT 98
[2024-10-14 14:19] VITALS: BP 120/82; PULSE 75; O2SAT 98
--- NOTE | 2024-10-17 08:38 | PC.NURSE ---
Urine culture results reviewed by Dr. Cardona. No new orders received at this time.
== END 2024-10-14 14:22 | disposition home or self-care (01) ==
PROVIDERS: Physician Assistant; Emergency Provider Emergency Medicine; PCP Nurse Practitioner Family
DX: R07.89 Other chest pain (principal)
CPT/HCPCS: 71045; 80053; 81001; 81025; 83690; 84484; 85025; 87086; 93005; 99285

== ENCOUNTER 2024-12-14 16:36 | Emergency (ER) | payer OTHER, SELFPAY ==
[2024-12-14] VITALS (8 sets, daily range): BP systolic 121–151; BP diastolic 81–107; PULSE 75–84; RESP 12–22; TEMP 37.2; O2SAT 99; BMI 30.7
--- NOTE | 2024-12-14 17:23 | ECG_ITS ---
APPROVED REPORT Exam: Resting ECG HR:75 bpm ECG Measurements Heart Rate 75 AXES IN 161 P 50 QRSd 92 QRS 4 QT 358 T 46 QTc 386 Conclusion SINUS RHYTHM NORMAL ECG UNCONFIRMED REPORT Normal sinus rhythm. No ST elevation or depression. QTc of 386 Electronically signed by : JOSE BROWNE, 12/17/2024 21:04:09
--- NOTE | 2024-12-14 17:33 | CT_ITS ---
PROCEDURE INFORMATION: Exam: CTA Chest With Contrast Exam date and time: 12/14/2024 8:12 PM Age: 34 years old Clinical indication: Shortness of breath TECHNIQUE: Imaging protocol: Computed tomographic angiography of the chest with contrast. Exam focused on the arteries. 3D rendering (Not supervised by radiologist): MIP and/or 3D reconstructed images were created by the technologist. Radiation optimization: All CT scans at this facility use at least one of these dose optimization techniques: automated exposure control; mA and/or kV adjustment per patient size (includes targeted exams where dose is matched to clinical indication); or iterative reconstruction. Contrast material: ISO 370; Contrast volume: 70 ml; Contrast route: INTRAVENOUS (IV); COMPARISON: CT ANGIO CHEST PE PROTOCOL 12/04/2022 1:49 PM FINDINGS: Pulmonary arteries: No CT evidence for pulmonary embolism. Aorta: Unremarkable. No aortic aneurysm. No aortic dissection. Lungs: No acute infiltrates.. Small lung volumes noted. Pleural spaces: Unremarkable. No pneumothorax. No pleural effusion. Heart: Unremarkable. No cardiomegaly. No pericardial effusion. Lymph nodes: Unremarkable. No enlarged lymph nodes. Bones/joints: Unremarkable. No acute fracture. Soft tissues: Unremarkable. IMPRESSION: 1. No CT evidence for pulmonary embolism. 2. No acute infiltrates..
--- NOTE | 2024-12-14 17:35 | ED_ITS ---
Discharge Plan Disposition Patient Disposition: Home, Self-Care Prescriptions Prescriptions: No Action cholecalciferol (vitamin D3) 50 mcg (2,000 unit) capsule 50 mcg PO DAILY Qty: 90 3RF ciprofloxacin HCl 250 mg tablet 250 mg PO BID Qty: 6 0RF trazodone 50 mg tablet 50 mg PO HS Qty: 90 2RF Referrals Follow up/Referrals: Danielle Castillo APRN [Primary Care Provider, Family Practice] - See instructions Activity Restrictions/Add. Instructions Additional Instructions/Restrictions: Your workup here did not show any emergent or life-threatening issues. I do encourage you to follow-up with your primary care doctor tomorrow as discussed. If you develop any new or worsening symptoms, or if you become concerned for your health for any reason, return to the emergency department for evaluation Clinical Impressions Clinical Impression: Shortness of breath, Flank pain, right side Print Language Print Language: Romanian Discharge ED Provider: Riley Segundo HPI <Libra Gupta (ED), ELEVATOR SERVICE TECHNICIAN - Last Filed: 12/14/24 19:01> General Chief Complaint: Shortness of Breath/Dyspnea Stated Complaint: SOA, tingling in fingers, lightheaded Time Seen by Provider: 12/14/24 17:27 Mode of Arrival: Ambulatory Source of Information: Patient Description of Symptoms (Recalled from ER Triage Doc. by RN): Pt presents with c/o increased SOB that staretd last saturday, along with tingling in her fingers on both hands. Pt states today she has started to experience some right sided flank/side pain. Pt does admit to some prior issues with anxiety, but states this sensation is completely different. History of Present Illness HPI narrative: 34-year-old female presents to the ED today with complaint of shortness of breath that started last Saturday. She also has tingling in her fingers on both hands. She says that she has started right sided flank, left-sided pain. She says she also feels lightheaded. She says she has no heart or lung problems. She does have anxiety but this feels different. She is not a smoker does not take control has had no recent travel has no leg pain has had no activity changes. Related Data Previous Rx's ?Medication ?Instructions ?Recorded cholecalciferol (vitamin D3) 50 50 mcg PO DAILY #90 ca ps 05/11/24 mcg (2,000 unit) capsule trazodone 50 mg tablet 50 mg PO HS #90 tabs 5 ciprofloxacin HCl 250 mg tablet 250 mg PO BID #6 tabs 10/05/24 Allergies Allergy/AdvReac Type Severity Reaction Status Date / Time No Known Allergies Allergy Verified 10/05/24 14:22 [facility] <Libra Alonso (ED), ELEVATOR SERVICE TECHNICIAN - Last Filed: 12/14/24 19:01> [facility] Disclaimer: The information contained in this section may have been updated after the patient was seen, as this information can be updated by other users. Medical History Iron deficiency anemia Respiratory infection Encounter to establish care Wheezing Pharyngitis URI (upper respiratory infection) Chest pain Healthcare maintenance Hepatitis A antibody positive Acute viral syndrome Viral pharyngitis Strep throat Otitis media Otitis externa UTI (urinary tract infection) Family history of colon cancer grandfather Depression Anxiety Rheumatoid arteritis Surgical History History of section Family History Grandfather Cancer colon Other Asthma Coronary artery disease Diabetes Hyperlipidemia Hypertension Social History Smoking Status: Never smoker alcohol intake: never substance use type: denies use current occupational status: employed Travel in the last 8 weeks?: None Have you lived/traveled outside [place] in past 30 days?: No Contact w/someone who lives/traveled outside US past 30 days?: No Exposure to someone with infectious disease in past 14 days?: No Do you have a fever (greater than 100.4 F or 38 C)?: No Have you tested positive for COVID-19?: No Exposed to someone with COVID-19 in past 14 days?: No Do you have a sore throat?: No Do you have a cough?: No Do you have any weakness?: No Do you have any diarrhea?: No Are you experiencing any unusual bleeding?: No Do you have any muscle aches/pain?: No Do you have any abdominal pain?: No Are you experiencing loss of taste or smell?: No Other Medical History Have you received the Pneumonia Vaccine: No <Ilbra Kilshefali (ED), ELEVATOR SERVICE TECHNICIAN - Last Filed: 12/14/24 19:01> ROS Obtained: Yes Systems reviewed as appropriate & no additional complaints except as documented Constitutional Constitutional: Reports as per HPI Physical Exam <Libra Kilshefali (ED), ELEVATOR SERVICE TECHNICIAN - Last Filed: 12/14/24 19:01> General General appearance: alert and in no apparent distress Head Head exam: normocephalic Eye Eye exam: Present PERRL and EOMI ENT ENT exam: Present normal oropharynx and mucous membranes moist Neck Neck exam: Present full ROM and trachea midline Respiratory Respiratory exam: Present normal lung sounds bilaterally Cardiovascular Cardiovascular exam: Present regular rate, normal rhythm, normal heart sounds, +S1 and +S2 Abdominal Exam Abdominal exam: Present soft and normal bowel sounds Extremities Exam Extremities exam: Present normal inspection, full ROM and normal capillary refill Back Exam Back exam: Present CVA tenderness (R) Neurological Exam Neurological exam: Present alert and oriented X3 Skin Skin exam: Present warm, dry and intact HEART Score <Libra Lamontshefali (ED), ELEVATOR SERVICE TECHNICIAN - Last Filed: 12/14/24 19:01> HEART Score HEART Score assessment performed?: Yes History (anamnesis): Slightly suspicious ECG: Normal Age: <45 years Risk factors: No known risk factors Troponin: </= normal limit HEART Score: 0 <Riley Segundo MD - Last Filed: 12/14/24 21:08> HEART Score HEART Score: 0 Critical Care <Libraseferino Gupta (ED), ELEVATOR SERVICE TECHNICIAN - Last Filed: 12/14/24 19:01> Critical Care Time Critical Care Time: No Medical Decision Making <Libra [facility] (ED), ELEVATOR SERVICE TECHNICIAN - Last Filed: 12/14/24 19:01> Nadeem Inquiry Pt receiving controlled substance: No Nadeem was queried for this patient: No Vital Signs Vital Signs: 12/14/24 17:25 12/14/24 17:29 12/14/24 17:30 Temperature 98.9 F Temperature Source Temporal Artery Scan Pulse Rate 81 Pulse Rate [Right] 81 Respiratory Rate 18 18 Blood Pressure 151/107 H Blood Pressure [Right Arm] 151/107 H Blood Pressure Mean Blood Pressure Mean [Right Arm] 121 Blood Pressure Source Automatic Cuff Blood Pressure Source [Right Arm] Automatic Cuff Blood Pressure Position Sitting Blood Pressure Position [Right Arm] Sitting 02 Sat by Pulse Oximetry 99 99 99 Oxygen Delivery Method Room Air Room Air Room Air 12/14/24 19:00 12/14/24 19:30 12/14/24 20:00 Temperature Temperature Source Pulse Rate 80 84 Pulse Rate [Right] Respiratory Rate 22 12 Blood Pressure 128/81 127/89 127/84 Blood Pressure [Right Arm] Blood Pressure Mean 93 97 93 Blood Pressure Mean [Right Arm] Blood Pressure Source Blood Pressure Source [Right Arm] Blood Pressure Position Blood Pressure Position [Right Arm] 02 Sat by Pulse Oximetry 99 99 Oxygen Delivery Method 12/14/24 20:00 12/14/24 20:30 Temperature Temperature Source Pulse Rate 75 Pulse Rate [Right] Respiratory Rate 21 Blood Pressure 122/86 Blood Pressure [Right Arm] Blood Pressure Mean 94 Blood Pressure Mean [Right Arm] Blood Pressure Source Blood Pressure Source [Right Arm] Blood Pressure Position Blood Pressure Position [Right Arm] 02 Sat by Pulse Oximetry 99 Oxygen Delivery Method Room Air Lab Data Labs: Lab Results 12/14/24 17:42: WBC 7.9, RBC 3.92 L, Hgb 10.7 L, Hct 33.6 L, MCV 85.7, MCH 27.3, MCHC 31.8, RDW 14.9, Plt Count 279, MPV 11.7 H, Neut % (Auto) 52.2, Lymph % (Auto) 34.8, [place] % (Auto) 9.7 H, Eos % (Auto) 2.0, Baso % (Auto) 0.9, Neut # (Auto) 4.1, Lymph # (Auto) 2.8, [place] # (Auto) 0.8, Eos # (Auto) 0.2, Baso # (Auto) 0.1, PT 11.2, INR 1.01, D-Dimer 0.75 H, Sodium 136, Potassium 4.1, Chloride 104, Carbon Dioxide 25, Anion Gap 11.1, BUN 11, Creatinine 0.70, Estimated Creat Clear 180, Estimated GFR 96, Est GFR ( Amer) 117, Glucose 78, Calcium 9.4, Magnesium 1.8, Total Bilirubin 0.4, AST 28, ALT 20, Alkaline Phosphatase 65, Troponin I < 0.01, Total Protein 7.9, Albumin 4.7, Globulin 3.2, Albumin/Globulin Ratio 1.5, Lipase 106, Serum HCG, Qual Negative 12/14/24 20:25: SARS-CoV-2 (PCR) Not detected, Influenza A Untype (PCR) Not detected, Influenza Type B (PCR) Not detected 12/14/24 17:42 12/14/24 17:42 Response Orders (Tests/Meds): ED MEDICATIONS Discontinued Medications Generic Name Dose Route Start Last Admin Trade Name Avtar PRN Reason Stop Dose Admin Aspirin 325 mg 12/14/24 17:33 12/14/24 18:10 Aspirin 325mg Tablet PO 12/14/24 17:34 325 mg ONCE ONE Administration Dexamethasone Sodium Phosphate 8 mg 12/14/24 17:33 12/14/24 18:10 Dexamethasone 4mg/Ml 1ml Vial IV 12/14/24 17:34 8 mg ONCE ONE Administration Magnesium Sulfate 2 gm in 50 mls @ 50 mls/hr 12/14/24 17:33 12/14/24 20:28 Magnesium Sulfate 2gm/50ml Premix IV 12/14/24 18:32 Infused ONCE ONE Infusion Iopamidol 70 ml 12/14/24 20:14 12/14/24 20:15 Iopamidol-370 (76%);100ml Bottle IV 12/14/24 20:15 70 ml ONCE ONE Administration Sodium Chloride 50 ml 12/14/24 20:14 12/14/24 20:15 0.9 % Sodium Chloride 50 Ml Vial IV 12/14/24 20:15 50 ml ONCE ONE Administration Sodium Chloride 10 ml 12/14/24 20:14 12/14/24 20:15 Sodium Chloride 0.9% 10ml Syr (Rad Only) IV 12/14/24 20:15 10 ml ONCE ONE Administration ORDERS Category Date Time Status CT abdomen pelvis w con Stat Cat Scan 12/14/24 17:35 Completed CTA Chest [CT angio chest PE protocol] Stat Cat Scan 12/14/24 17:33 Completed CBC [Complete Blood Count Auto Diff] Stat Lab 12/14/24 17:42 Completed Comprehensive Metabolic Panel Stat Lab 12/14/24 17:42 Completed D-Dimer Stat Lab 12/14/24 17:42 Completed HCG Qualitative, Serum Stat Lab 12/14/24 17:42 Completed Lipase Stat Lab 12/14/24 17:42 Completed Magnesium Stat Lab 12/14/24 17:42 Completed PT INR [Prothrombin Time INR] Stat Lab 12/14/24 17:42 Completed Rapid PCR Covid and Flu A/B Stat Lab 12/14/24 20:25 Completed Trop I [Troponin I] Stat Lab 12/14/24 17:42 Completed Troponin I Q3H Lab 12/14/24 20:45 Ordered Troponin I Q3H Lab 12/14/24 23:45 Ordered MDM Narrative Medical Decision Narrative: patient is a 34-year-old female presenting to the emergency department for evaluation of shortness of breath, lightheaded feeling, right flank pain and tingling in her fingers. Patient is hemodynamically stable and nontoxic- appearing upon arrival, afebrile. Differential diagnosis includes ACS, anxiety, kidney stone, among others. Workup will be conducted with hematologic labs, specific imaging, provocative tests. Initial inventions include crystalloid bolus, analgesics, antibiotics. I gave report to Dr. Segundo. Patient stable at this time. <Riley Segundo MD - Last Filed: 12/14/24 21:08> Vital Signs Vital Signs: 12/14/24 17:25 12/14/24 17:29 12/14/24 17:30 Temperature 98.9 F Temperature Source Temporal Artery Scan Pulse Rate 81 Pulse Rate [Right] 81 Respiratory Rate 18 18 Blood Pressure 151/107 H Blood Pressure [Right Arm] 151/107 H Blood Pressure Mean Blood Pressure Mean [Right Arm] 121 Blood Pressure Source Automatic Cuff Blood Pressure Source [Right Arm] Automatic Cuff Blood Pressure Position Sitting Blood Pressure Position [Right Arm] Sitting 02 Sat by Pulse Oximetry 99 99 99 Oxygen Delivery Method Room Air Room Air Room Air 12/14/24 19:00 12/14/24 19:30 12/14/24 20:00 Temperature Temperature Source Pulse Rate 80 84 Pulse Rate [Right] Respiratory Rate 22 12 Blood Pressure 128/81 127/89 127/84 Blood Pressure [Right Arm] Blood Pressure Mean 93 97 93 Blood Pressure Mean [Right Arm] Blood Pressure Source Blood Pressure Source [Right Arm] Blood Pressure Position Blood Pressure Position [Right Arm] 02 Sat by Pulse Oximetry 99 99 Oxygen Delivery Method 12/14/24 20:00 12/14/24 20:30 Temperature Temperature Source Pulse Rate 75 Pulse Rate [Right] Respiratory Rate 21 Blood Pressure 122/86 Blood Pressure [Right Arm] Blood Pressure Mean 94 Blood Pressure Mean [Right Arm] Blood Pressure Source Blood Pressure Source [Right Arm] Blood Pressure Position Blood Pressure Position [Right Arm] 02 Sat by Pulse Oximetry 99 Oxygen Delivery Method Room Air Lab Data Labs: Lab Results 12/14/24 17:42: WBC 7.9, RBC 3.92 L, Hgb 10.7 L, Hct 33.6 L, MCV 85.7, MCH 27.3, MCHC 31.8, RDW 14.9, Plt Count 279, MPV 11.7 H, Neut % (Auto) 52.2, Lymph % (Auto) 34.8, [place] % (Auto) 9.7 H, Eos % (Auto) 2.0, Baso % (Auto) 0.9, Neut # (Auto) 4.1, Lymph # (Auto) 2.8, [place] # (Auto) 0.8, Eos # (Auto) 0.2, Baso # (Auto) 0.1, PT 11.2, INR 1.01, D-Dimer 0.75 H, Sodium 136, Potassium 4.1, Chloride 104, Carbon Dioxide 25, Anion Gap 11.1, BUN 11, Creatinine 0.70, Estimated Creat Clear 180, Estimated GFR 96, Est GFR ( Amer) 117, Glucose 78, Calcium 9.4, Magnesium 1.8, Total Bilirubin 0.4, AST 28, ALT 20, Alkaline Phosphatase 65, Troponin I < 0.01, Total Protein 7.9, Albumin 4.7, Globulin 3.2, Albumin/Globulin Ratio 1.5, Lipase 106, Serum HCG, Qual Negative 12/14/24 20:25: SARS-CoV-2 (PCR) Not detected, Influenza A Untype (PCR) Not detected, Influenza Type B (PCR) Not detected Response Orders (Tests/Meds): ED MEDICATIONS Discontinued Medications Generic Name Dose Route Start Last Admin Trade Name Freq PRN Reason Stop Dose Admin Aspirin 325 mg 12/14/24 17:33 12/14/24 18:10 Aspirin 325mg Tablet PO 12/14/24 17:34 325 mg ONCE ONE Administration Dexamethasone Sodium Phosphate 8 mg 12/14/24 17:33 12/14/24 18:10 Dexamethasone 4mg/Ml 1ml Vial IV 12/14/24 17:34 8 mg ONCE ONE Administration Magnesium Sulfate 2 gm in 50 mls @ 50 mls/hr 12/14/24 17:33 12/14/24 20:28 Magnesium Sulfate 2gm/50ml Premix IV 12/14/24 18:32 Infused ONCE ONE Infusion Iopamidol 70 ml 12/14/24 20:14 12/14/24 20:15 Iopamidol-370 (76%);100ml Bottle IV 12/14/24 20:15 70 ml ONCE ONE Administration Sodium Chloride 50 ml 12/14/24 20:14 12/14/24 20:15 0.9 % Sodium Chloride 50 Ml Vial IV 12/14/24 20:15 50 ml ONCE ONE Administration Sodium Chloride 10 ml 12/14/24 20:14 12/14/24 20:15 Sodium Chloride 0.9% 10ml Syr (Rad Only) IV 12/14/24 20:15 10 ml ONCE ONE Administration ORDERS Category Date Time Status CT abdomen pelvis w con Stat Cat Scan 12/14/24 17:35 Completed CTA Chest [CT angio chest PE protocol] Stat Cat Scan 12/14/24 17:33 Completed CBC [Complete Blood Count Auto Diff] Stat Lab 12/14/24 17:42 Completed Comprehensive Metabolic Panel Stat Lab 12/14/24 17:42 Completed D-Dimer Stat Lab 12/14/24 17:42 Completed HCG Qualitative, Serum Stat Lab 12/14/24 17:42 Completed Lipase Stat Lab 12/14/24 17:42 Completed Magnesium Stat Lab 12/14/24 17:42 Completed PT INR [Prothrombin Time INR] Stat Lab 12/14/24 17:42 Completed Rapid PCR Covid and Flu A/B Stat Lab 12/14/24 20:25 Completed Trop I [Troponin I] Stat Lab 12/14/24 17:42 Completed Troponin I Q3H Lab 12/14/24 20:45 Ordered Troponin I Q3H Lab 12/14/24 23:45 Ordered ECG Data Tracing #1: Attestation: I reviewed this ECG and interpreted as documented below: ECG Narrative: Normal sinus rhythm. No ST elevation or depression. QTc of 386 MDM Narrative Medical Decision Narrative: patient is a 34-year-old female presenting to the emergency department for evaluation of shortness of breath, lightheaded feeling, right flank pain and tingling in her fingers. Patient is hemodynamically stable and nontoxic- appearing upon arrival, afebrile. Differential diagnosis includes ACS, anxiety, kidney stone, among others. Workup will be conducted with hematologic labs, specific imaging, provocative tests. Initial inventions include crystalloid bolus, analgesics, antibiotics. I gave report to Dr. Segundo. Patient stable at this time. I was consulted by the JENNIFER, and we discussed the complexity of the problems being addressed. I approve the treatment and management plan for this patient's care in the emergency department, thus performing a substantive portion of the medical decision making. Patient CT imaging was interpreted by me personally. No pulmonary embolism, dissection or pneumonias are appreciated. Unremarkable CT abdomen pelvis. See radiology report for details. Laboratory workup is grossly unremarkable with normal white blood cell count, hemoglobin stably low at 10.7, hematocrit 33.6. Platelets normal at 279. Patient's D-dimer is mildly elevated at 0.75 but no evidence of pulmonary embolism on CT imaging. Coags otherwise unremarkable. Electrolytes and renal function within normal limits. Initial troponin less than 0.01. Lipase normal at 106. Negative test. On reassessment, patient remains in stable condition. She overall feels well at this time. She states that she has follow-up with her primary care doctor in the morning. I do not appreciate any emergent or life-threatening pathology on her workup today I do feel that she is appropriate for discharge with follow-up with her PCP in the morning. I discussed this with patient and she is in agreement with this plan. Return precautions were given. All questions were answered. She was then discharged from the emergency department in stable condition.
--- NOTE | 2024-12-14 17:35 | CT_ITS ---
PROCEDURE INFORMATION: Exam: CT Abdomen And Pelvis With Contrast Exam date and time: 12/14/2024 8:12 PM Age: 34 years old Clinical indication: Abdominal pain; Additional info: Right flank TECHNIQUE: Imaging protocol: Computed tomography of the abdomen and pelvis with contrast. 3D rendering (Not supervised by radiologist): MIP and/or 3D reconstructed images were created by the technologist. Radiation optimization: All CT scans at this facility use at least one of these dose optimization techniques: automated exposure control; mA and/or kV adjustment per patient size (includes targeted exams where dose is matched to clinical indication); or iterative reconstruction. Contrast material: ISOVUE; Contrast volume: 70 ml; Contrast route: IV; COMPARISON: CT ABDOMEN PELVIS WO/W CON 05/29/2024 8:01 AM FINDINGS: Lungs: The visualized lung bases demonstrate no focal infiltrates or pleural effusions. Liver: The liver appears within normal limits. Gallbladder and biliary ducts: The gallbladder is normal. There is no evidence of biliary ductal dilation. Pancreas: The pancreas is normal. Spleen: The spleen is normal. Adrenal glands: The adrenal glands appear within normal limits. Kidneys and ureters: The kidneys are normal. Stomach and bowel: The stomach appears within normal limits. No wall thickening or inflammatory change. Appendix: No evidence of appendicitis. Intraperitoneal space: No free air. No evidence for focal fluid collection or ascites. No evidence for omental thickening. Vasculature: Unremarkable. No abdominal aortic aneurysm. Lymph nodes: Unremarkable. No enlarged lymph nodes. Urinary bladder: The bladder appears within normal limits. No wall thickening. Reproductive: The uterus and adnexal structures appear normal. Bones/joints: Unremarkable. No acute fracture. Soft tissues: Rectus abdominis diastasis incidentally noted. IMPRESSION: No acute findings.
--- OUTSIDE RECORDS SUMMARY | 2024-12-14 17:35 | XMS_ITS | Data Portability ---
Author Organization [facility] ADMIN Address [address] [place] [address] Care Team Providers Care Budget Record Clerk Name Role Phone ALLEN MAJOR Primary Care [...] created using voice recognition/text compilation software with [employer]'s documentation services during the encounter with the patient; Please excuse any errors due to the videogame designer process. [email or web address] Not available 06/30/2024 10:18:01 08/06/2024 08/06/2024 ASSESSMENT: Mattie Hernadez is a 34-year-old female with a history of kidney stones composed of calcium oxalate and calcium phosphate, and elevated parathyroid hormone levels. PLAN: 1. Referral to endocrinology for evaluation of elevated parathyroid hormone levels and potential hyperparathyroid ism. 2. Provide the patient with a Litholink kit for a 24-hour urine collection to assess urine chemistry. 3. Follow-up in three months for further evaluation. Please note this report was created using voice recognition/text compilation software documentation services during the encounter with the patient. [email or web address] Not available 08/06/2024 08:29:18 Plan of Treatment Reminders Order Date Submit Date Provider Last Modified By Organization Details Last Modified Time Details Appointments None recorded. Lab PTH (parathyroi d hormone), intact + calcium, serum or plasma [address] (Lab), [address], [place], [address], 5 11:56:16 uric acid, serum or plasma 2024 025 [facility] (Lab), [address], [place], [address], 5 13:32:14 magnesium, serum or plasma 2024 025 [facility] (Lab), [address], [place], [address], 5 13:32:14 phosphorus, serum or plasma [address] (Lab), [address], [place], [address], 5 11:56:16 BMP, serum or plasma 2024 025 [facility] (Lab), [address], [place], [address], 5 13:04:51 Referral endocrinolo gy referral 2024 025 [email or web address] [facility], [address], [place], [address], 5 15:23:46 Procedures None recorded. Surgeries cystoscopy, with ureterscopy , stone manipulatio n, with holmium laser, with possible stent placement (SURG) 2024 025 [email or web address] Not available 11:39:36 Imaging None recorded. Medication Orders None recorded. Patient TargetsNo targets recorded. Patient InstructionsNo instructions recorded. Reason for Referral Endocrinology Referral for H ormone increase Referring Physician: Bar Norton, Urology, Encounter Date: 08/06/2024 Results Created Date Observation Date Name Description Value Unit Range Abnormal Flag Note LastModifiedBy Organization Detail LastModifiedTime 07/25/1908/01/2024 CALCU LI, UR (STON E OBED SIS) source Commleny t Gregory Right Urete r Not Available [facility] ([facility]) [address], [place], [address], 08/01/2024 13:11:02 07/25/19 25 08/01/2024 CALCU LI, UR (STON E OBED SIS) color Brown Not Available [facility] ([facility]) [address], [place], [address], 08/01/2024 13:11:02 07/25/19 25 08/01/2024 CALCU LI, UR (STON E OBED SIS) size 4x3 mm Multi ple piece s recei corwin. Dimen sions of the large st piece repor adan. Not Available [facility] ([facility]) [address], [place], [address], 08/01/2024 13:11:02 07/25/19 25 08/01/2024 CALCU LI, UR (STON E OBED SIS) weight 59 mg Not Available [facility] ([facility]) [address] [place], [address], 08/01/2024 13:11:02 07/25/19 25 08/01/2024 CALCU LI, UR (STON E OBED SIS) Ca oxalate dihydrate 20 % Not Available [facility] ([facility]) [address], [place], [address], 08/01/2024 13:11:02 07/25/19 25 08/01/2024 CALCU FELIZ UR (STON E OBED SIS) Ca oxalate monohydrate 40 % Not Available [facility] ([facility]) [address], [place], [address], 08/01/2024 13:11:02 07/25/19 25 08/01/2024 CALCU FELIZ, UR (STON E OBED SIS) calcium phosphate (hydroxyl) 40 % Not Available [facility] ([facility]) [address], [place], [address], 08/01/2024 13:11:02 07/25/19 25 08/01/2024 CALCU LI, UR (STON E OBED SIS) comment Commen t . Calcu alessandro recei corwin wet. Wet calcu li must be dried befor e obed sis, which delay s repor ting of resul ts. Leavi ng calcu li wet (such as water , salin e, blood , urine ) may lead to walker es in compo sitio n. Not Available [facility] ([facility]) [address], [place], [address], 08/01/2024 13:11:02 07/25/19 25 08/01/2024 CALCU FELIZ, UR (STON E OBED SIS) pdf image . Perfo rmed at: [facility] [address] [place] [address] Lab Direc tor: Jose peterson PhD, Phone : [phone] Not Available [facility] ([facility]) [address], [place], [address], 08/01/2024 13:11:02 07/28/19 25 07/24/2024 fluor o less than 1 HR [facility] [address] [place] [address] Phone: Fax: Name: MATTIE HERNADEZ Exam Date: : 992 Age 34 years Gender : F Access ion: [id number] [phone] Physic abdon: BAR NORTON Facili ty: [facility] Facili ty HSV: Outpat ient Exam: [...] Thank you for referr MATTIE Denny to [facility] al. Legall y authen ticate d by EMANUEL BUSH 0 07-27 11:42: 17 CC'ed Logic: Orderi ng Provid er: CIERRA ROGERS Attend ing Provid er: CIERRA ROGERS Admitt ing Provid er: CIERRA ROGERS [email or web address] [facility] [address], [place], [address], 08/03/2024 13:18:50 Result Notes None recorded. Problems Name Problem SNOMED Code Status Onset Date Resolution Date Notes Provider Name and Address Organization Details Recorded Time Kidney stone 86036436 Active 025 BAR NORTON MD [address], [place], [address], [facility] & [place] 5 08:29:12 Hormone increase 0575148 Active 025 BAR NORTON MD [address], [place], [address], [facility] & [place] 5 08:29:03 Problem Notes None recorded. Procedures Surgical History Date Name Laterality Status Provider Name and Address Organization Details Recorded Time 5 Cystoscopy-Fe male completed BAR NORTON MD [address], [place], [address], [facility] & [place] 08/06/2024 08:29:48 8 section completed Shante Aquino [facility] & [place] 06/30/2024 10:07:44 Imaging Results None recorded. Procedure [...] t Available trazodone 50 mg tablet TAKE ONE TABLET BY MOUTH EVERY NIGHT AT BEDTIME active Not Available Not Available No t Available ciprofloxac in 250 mg tablet TAKE ONE TABLET BY MOUTH TWICE DAILY -- FINISH ALL MEDICINE -- active Not Available Not Available No t Available tramadol 50 mg tablet TAKE ONE TABLET BY MOUTH EVERY 6 HOURS NEEDED FOR MODERATE PAIN (PAIN SCALE 4 TO 6) MAY CAUSE DROWSINES S active Not Available Not Available No t [...] Not Available Not Available No t Available oxybutynin chloride 5 mg tablet TAKE ONE TABLET BY MOUTH THREE TIMES DAILY active Not Available Not Available No t Available cefdinir 300 mg capsule TAKE ONE CAPSULE BY MOUTH TWICE DAILY active Not Available Not Available No t Available nitrofurant oin monohydrate /macrocryst als 100 mg capsule TAKE 1 CAPSULE BY MOUTH EVERY 12 HOURS WITH FOOD FOR 7 DAYS 06/30 completed Not Available Not Available Not Available FeroSul 325 mg (65 mg iron) tablet TAKE ONE TABLET BY MOUTH TWICE DAILY active Not Available Not Available No t Available Vitals Date Recorded Body height Body mass index (BMI) Body weight Body temperature Oxygen saturation Oxygen saturation in Arterial blood by Pulse oximetry Heart rate Systolic And Diastolic Provider Name and Address Organization Details Last Updated DateTime 177.8 cm 31 kg/m2 68779.3 9 g 97.6 [degF] 98 % 98 % 70 /min 122/70 mm[Hg] Keeley Butterfield [facility] & [place] 10:04:01 Social History None recorded. Functional Status Question Answer Note LastModified by Organizat ion Details LastModified Time Do you use any illicit or recreational drugs? No [email or web address] Information not available 06/30/2024 Do you or have you ever used any other forms of tobacco or nicotine? No [email or web address] Information not available 06/30/2024 What is your level of alcohol consumption? None Information not available 06/30/2024 Mental Status None recorded. Family History Relationship Description Onset Age of this Age Resolved Age Notes LastModified by Organization Details LastModified Time Mother Asthma [email or web address] Not available 06/30/2024 10:08:13 Mother Diabetes mellitus [email or web address] Not available 2024 10:08:34 Mother Atrial fibrillation [email or web address] Not available 10:10:40 Father Blood pressure above reference range [email or web address] Not available 2024 10:09:24 Father Diabetes mellitus [email or web address] Not available 2024 10:09:55 Medical History Condition Response Kidney Stones Y Gynecological HistoryNo gynecological history recorded. Obstetrics History GPAL:G 0 P 0 0 0 0 Past Encounters Encounter ID Performer Location Encounter Start Date Encounter Closed Date Diagnosis/Indication Diagnosis SNOMED-CT Code Diagnosis ICD10 Code Diagnosis IMO Codes Diagnosis Note [id number] BAR NORTON MD [facility] Urology-1 00 [address] [facility] [address] [place] [address] 06/30/2024 09:44:21 06/30/2024 10:54:22 Kidney stone 13518744 N20.0 0557349 [id number] BAR NORTON MD [facility] Urology-[address] [place] [address] 08/06/2024 08:14:38 08/06/2024 08:34:18 Hormone increase 7986353 R79.89 [id number] Kidney stone 07547800 N2 0.0 95628 Health Concerns Section Related Observation LastModified by Organization Detai ls LastModified Time None Recorded Concern Status LastModified by Organization Details LastModified Time None Recorded Advance Directives Directive None Recorded Payers Insurance Date Sequence Insurance Name Policy Number Policy Barker Covered Member ID Barker Member ID Guarantor Name 11/02/2024 1 [facility] [id number] Mattie Hernadez [id number] Mattie Hernadez Notes Date Note Type Note Provider Name and Address Organization Details Recorded Time 07/24/2024 text/plain Operative/Proced ure Note [facility] Name Margaret Mattie Flowers Date of Service 0819 [id number] ([id number]) Attending CIERRA Doherty NORMA Admitted [id number] Discharged Primary MAJOR ALLEN - Pre-Procedure Diagnosis [...] orifice. This was catheterized with a 5 Martiniquais open-ended [place] catheter and right retrograde pyelogram was performed. Two sensor tip guidewires were advanced under fluoroscopic guidance. We then advanced a 12/14 Martiniquais ureteral access sheath to the proximal right [...] reinserted the cystoscope and advanced a 6 Martiniquais by 24 cm double-J ureteral stent over [...] condition Specimens 1 of 2 Operative/Procedure Note [facility] Name Mattie Hernadez Date of Service 0819 [id number] ([id number]) Attending CIERRA GREEN Admitted [id number] Discharged Primary MAJOR ALLEN - Right kidney stone fragments Tubes/Drains None Implants Right ureteral stent Disposition of Patient Stable to PACU Electronically signed by CIERRA GREEN on 0822 2 of 2 CC'ed Logic: Ordering Provider: CIERRA ROGERS Attending Provider: CIERRA ROGERS Admitting Provider: CIERRA Goldstein NP, [address], [place], [address], [facility] - [place] & [place] 08/03/2024 08:37:54 06/30/2024 text/html ROS as noted in the HPI 06/30/24 [id number] referred to my office for right renal [...] few smaller stones. 05/29/24 CT abd/pel w/w/o ([facility]): there are multitude of right renal stones measuring up to 10mm, no left renal stones are visualized, the urinary bladder is unremarkable BAR NORTON MD [address], [place], [address], [place] [facility] - [place] & [place] 07/01/2024 12:23:01 08/06/2024 text/html ROS as noted in the HPI 08/06/24 Patient returns to my office surgery follow up and discuss lab results. Mattie Hernadez is a 34-year-old female who presents for a follow-up visit for stent removal and cystoscopy. The patient expresses eagerness to have the stent removed, stating that she wished it could have been removed a week after the procedure. She reports that her father has a history of parathyroid issues. The patient has not yet completed the 24-hour urine collection and will require a Litholink kit for further evaluation. 07/01/[id number] anisa referred to my office for right renal stonesTaalessia Hernadez is a 33-year-old female who presents [...] the bottom, and a few smaller stones. 5PTH 62.6, Phos 3.7, Mg 1.8, Ca 9.606 Cr 0.80, GFR R URS, laser, stent (CaOxMo 40%, CaPhos 40%, CaOxDi 20%)05/29/24 CT abd/pel w/w/o ([facility]): there are multitude of right renal stones measuring up to 10mm, no left renal stones are visualized, the urinary bladder is unremarkable BAR NORTON MD [address], [place], [address], [facility] - [place] & [place] 08/06/2024 08:41:55 OBGyn Episode No OBEpisode recorded.
[2024-12-14 17:53] LABS: Hematocrit 33.6 % (37.0-47.0); Hemoglobin 10.7 g/dL (12.2-16.2); Immature Granulocytes % 0.4 %; Mean Corpuscular HGB Conc 31.8 g/dL (31.8-35.4); Mean Corpuscular Hemoglobin 27.3 pg (27.0-31.2); Mean Corpuscular Volume 85.7 fl (81-99); Nucleated Red Blood Cells % 0 %; Platelet Count 279 K/mm3 (142-424); Red Blood Count 3.92 M/mm3 (4.20-5.40); Red Cell Distribution Width-SD 47.2 fL; White Blood Count 7.9 K/mm3 (4.8-10.8)
[2024-12-14 18:00] LABS: INR 1.01 (0.9-1.1); Prothrombin Time 11.2 seconds (10.1-12.5)
[2024-12-14 18:06] LABS: Alanine Aminotransferase 20 U/L (12-78); Albumin Level 4.7 g/dl (3.5-5.0); Albumin/Globulin Ratio 1.5 (1.1-1.8); Alkaline Phosphatase 65 U/L (38-126); Anion Gap 11.1 mEq/L (5-15); Aspartate Amino Transferase 28 U/L (14-36); Bilirubin,Total 0.4 mg/dl (0.2-1.3); Blood Urea Nitrogen 11 mg/dl (7-17); Calcium 9.4 mg/dl (8.4-10.2); Carbon Dioxide 25 mmol/L (22.0-30.0); Chloride 104 mmol/L (98-107); Creatinine Clearance Estimated 180 mL/min (50-200); Creatinine,Serum 0.70 mg/dl (0.52-1.04); Estimated Glomerular Filt Rate 96 ml/min (>60); GFR (African American) 117 ML/MIN (>60); Globulin 3.2 g/dL (1.3-3.2); Glucose 78 mg/dl (74-100); Lipase 106 U/L (23-300); Magnesium 1.8 mg/dl (1.6-2.3); Potassium 4.1 mmoL/L (3.5-5.1); Sodium 136 mmol/L (136-145); Total Protein,Serum 7.9 g/dl (6.3-8.2)
[2024-12-14] MEDS: ASPIRIN 325MG TABLET 325 MG PO (18:10)
[2024-12-14] MEDS: DEXAMETHASONE 4MG/ML 1ML VIAL 8 MG IV (18:10)
[2024-12-14] MEDS: MAGNESIUM SULFATE IN WATER 2 GM/50 ML PIGGYBACK IV (18:11)
[2024-12-14 18:18] LABS: D-Dimer 0.75 ug/mL (0.0-0.5)
[2024-12-14 18:24] LABS: Troponin I < 0.01 ng/ml (0.00-0.034)
--- NOTE | 2024-12-14 18:38 | PC.NURSE ---
Unhooked and assisted pt to the bathroom
[2024-12-14 19:45] LABS: HCG Qualitative, Serum Negative (Negative)
[2024-12-14] MEDS: 0.9 % SODIUM CHLORIDE 50 ML VIAL IV (20:15)
[2024-12-14] MEDS: IOPAMIDOL-370 (76%);100ML BOTTLE 70 ML IV (20:15)
[2024-12-14] MEDS: SODIUM CHLORIDE 0.9% 10ML SYR (RAD ONLY) 10 ML IV (20:15)
[2024-12-14 20:38] LABS: Coronavirus 19, PCR Not Detected (NotDetected); Influenza A, PCR Not Detected (NotDetected); Influenza B, PCR Not Detected (NotDetected)
== END 2024-12-14 21:12 | disposition home or self-care (01) ==
PROVIDERS: Nurse Practitioner; Emergency Provider Student in an Organized Health Care Education/Training Program; PCP Nurse Practitioner Family
DX: R06.02 Shortness of breath (principal); R10.A1 Flank pain, right side; R20.2 Paresthesia of skin
CPT/HCPCS: 71275; 74177; 80053; 83690; 83735; 84484; 84703; 85025; 85378; 85610; 87636; 93005; 96365; 96375; 99285; J1100; J3475; Q9967

== ENCOUNTER 2024-12-15 14:46 | Outpatient (CLI) | payer OTHER, SELFPAY ==
[2024-12-15 16:21] LABS: Iron 57 ug/dL (37-170); Magnesium 1.7 mg/dl (1.6-2.3); Phosphorous 3.9 mg/dl (2.5-4.5)
[2024-12-15 16:30] LABS: Total Iron Binding Capacity 401 ug/dL (265-497)
[2024-12-15 16:39] LABS: Free T4 (Free Thyroxine) 1.23 ng/dl (0.78-2.19)
[2024-12-15 16:54] LABS: Thyroid Stimulating Hormone 0.51 uIU/mL (0.465-4.68)
[2024-12-15 16:58] LABS: Ferritin 6.29 ng/ml (6.24-137)
[2024-12-15 17:01] LABS: 25-OH Vitamin D, Total 24.6 ng/mL (30-100)
[2024-12-16 17:15] LABS: Calcium, Ionized 5.4 mg/dL (4.5-5.6)
== END 2024-12-15 23:59 | disposition home or self-care (01) ==
LOC: LAB 14:48
PROVIDERS: PCP Nurse Practitioner Family; Visit Provider Nurse Practitioner Family
DX: D50.9 Iron deficiency anemia, unspecified (principal); R00.0 Tachycardia, unspecified; R79.89 Other specified abnormal findings of blood chemistry
CPT/HCPCS: 36415; 82306; 82330; 82728; 83540; 83550; 83735; 83970; 84100; 84439; 84443; 93225; 93227